=== PATIENT | female | born 1970 | race Caucasian/White ===

== ENCOUNTER → 2020-11-30 12:31 | Outpatient (CLI) | payer OTHER, SELFPAY ==
--- NOTE | 2020-11-30 | DI.MG.S_ITS ---
BILATERAL DIGITAL SCREENING MAMMOGRAM 3D/2D WITH CAD: 11/30/2020 CLINICAL: Routine screening. Family history of breast cancer. Comparison is made to exams dated: 03/22/2019 mammogram and 02/05/2018 mammogram - [facility]. The tissue of both breasts is heterogeneously dense. This may lower the sensitivity of mammography. Current study was also evaluated with a Computer Aided Detection (CAD) system. There is a biopsy clip in the right breast. No significant masses, calcifications, or other findings are seen in either breast. There has been no significant interval change. IMPRESSION: NEGATIVE There is no mammographic evidence of malignancy. A 1 year screening mammogram is recommended. This exam was interpreted at Station ID: [id number]. NOTE: For mammograms, a report in lay terms will be sent to the patient. Approximately 15% of breast malignancies will not be visualized mammographically. In the management of a palpable breast mass, a negative mammogram must not discourage biopsy of a clinically suspicious lesion. Electronically Signed By: Ranulfo bolanos/danyelle:11/30/2020 13:03:06 letter sent: Normal Exam ACR BI-RADS Category 1: Negative 3341F
== END ==
PROVIDERS: Family Provider Family Medicine; PCP Family Medicine; Referring Provider Family Medicine; Visit Provider Family Medicine
DX: Z12.31 Encounter for screening mammogram for malignant neoplasm of breast (principal); Z80.3 Family history of malignant neoplasm of breast
CPT/HCPCS: 77063; 77067

== ENCOUNTER → 2022-04-10 17:42 | Outpatient (CLI) | payer OTHER, SELFPAY ==
--- NOTE | 2022-04-10 17:43 | DI.MG.S_ITS ---
BILATERAL DIGITAL SCREENING MAMMOGRAM 3D/2D WITH CAD: 04/10/2022 CLINICAL: Routine screening. Family history of breast cancer. Comparison is made to exams dated: 11/30/2020 mammogram - [facility], 03/22/2019 mammogram, and 02/05/2018 mammogram - [facility]. The tissue of both breasts is heterogeneously dense. This may lower the sensitivity of mammography. Current study was also evaluated with a Computer Aided Detection (CAD) system. There is a biopsy clip in the right breast. No significant masses, calcifications, or other findings are seen in either breast. There has been no significant interval change. IMPRESSION: NEGATIVE There is no mammographic evidence of malignancy. A 1 year screening mammogram is recommended. Based on Tyrer-Cuzick model (a risk assessment model), the patient's lifetime risk is 22.0% and her 10 year risk is 5.4%. If a patient has an elevated risk, a more comprehensive evaluation should be considered and/or a referral to a genetic counselor. The [employer], [employer], and NCCN Guidelines advise the consideration of Breast MRI as an adjunct to screening mammography in patients whose Lifetime risk to develop breast cancer is 20% or higher. This exam was interpreted at Station ID: [id number]. NOTE: For mammograms, a report in lay terms will be sent to the patient. Approximately 15% of breast malignancies will not be visualized mammographically. In the management of a palpable breast mass, a negative mammogram must not discourage biopsy of a clinically suspicious lesion. Electronically Signed By: Arvin jefferson/danyelle:04/11/2022 08:09:44 letter sent: Normal Exam ACR BI-RADS Category 1: Negative 3341F
== END ==
PROVIDERS: Family Provider Family Medicine; PCP Family Medicine; Referring Provider Family Medicine; Visit Provider Family Medicine
DX: Z12.31 Encounter for screening mammogram for malignant neoplasm of breast (principal); Z80.3 Family history of malignant neoplasm of breast
CPT/HCPCS: 77063; 77067

== ENCOUNTER → 2023-11-09 14:48 | Outpatient (CLI) | payer OTHER, SELFPAY ==
--- NOTE | 2023-11-09 | DI.MG.S_ITS ---
BILATERAL DIGITAL SCREENING MAMMOGRAM 3D/2D WITH CAD: 11/09/2023 CLINICAL: Routine screening. Family history of breast cancer. Comparison is made to exams dated: 04/10/2022 mammogram, 11/30/2020 mammogram - [facility], and 03/22/2019 mammogram - [facility]. There are scattered areas of fibroglandular density in both breasts (category b / 25%-50% glandular tissue). Current study was also evaluated with a Computer Aided Detection (CAD) system. There is a biopsy clip in the right breast. No significant masses, calcifications, or other findings are seen in either breast. There has been no significant interval change. IMPRESSION: NEGATIVE There is no mammographic evidence of malignancy. A 1 year screening mammogram is recommended. Based on the Tyrer Cuzick model (a risk assessment model) the patient's lifetime risk is 14.8% and her 10 year risk is 3.9%. According to the ACR, ACS, and NCCN guidelines, an annual breast MRI exam along with mammogram is recommended if the patient's lifetime risk is 20% or greater. This exam was interpreted at Station ID: [id number]. NOTE: For mammograms, a report in lay terms will be sent to the patient. Approximately 15% of breast malignancies will not be visualized mammographically. In the management of a palpable breast mass, a negative mammogram must not discourage biopsy of a clinically suspicious lesion. Electronically Signed By: Hanny mayo/danyelle:11/09/2023 16:12:03 letter sent: Normal Exam ACR BI-RADS Category 1: Negative [id number]
== END ==
LOC: MAMMO 14:49
PROVIDERS: Family Provider Family Medicine; PCP Family Medicine; Referring Provider Family Medicine; Visit Provider Family Medicine
DX: Z12.31 Encounter for screening mammogram for malignant neoplasm of breast (principal); Z80.3 Family history of malignant neoplasm of breast; R92.323 Mammographic fibroglandular density, bilateral breasts
CPT/HCPCS: 77063; 77067

== ENCOUNTER 2024-01-22 13:45 | Outpatient (RCR) | payer OTHER, SELFPAY ==
--- NOTE | 2023-11-05 17:16 | PT.OIE ---
Current Diagnoses Other chronic pain (11/05/23) Pain in right knee (11/05/23) Past Medical History (Last Reviewed 02/20/22 @ 09:07 by Sawyer Griffiths MD) Fatigue due to sleep pattern disturbance (~2019) Insomnia due to medical condition (~2019) Obstructive sleep apnea, adult Snoring (~2019) Visit Care Team Role Provider Type Elina Colon MD Attending Provider Physician Family Provider Primary Care Provider Referring Provider Specialty: Family Practice Address: [address] [place] [address], [facility] [place], [facility] Email: [email or web address] Physical Therapy Initial Evaluation PT-OP-A Visit Information Start: 11/04/23 17:57 Freq: Status: Active Protocol: Document 11/05/23 09:02 NM (Rec: 11/05/23 09:48 NM [id number]) Out-Patient Physical Therapy Visit Information Visit Information Visit Type Initial Evaluation Visit Start Time 09:00 Visit Stop Time 09:45 Visit Number 1 Evaluation Information Evaluation Date 11/05/23 Precautions Precautions No twisting, limit squat depth PT-OP-B Current Condition Start: 11/04/23 17:57 Freq: Status: Active Protocol: Document 11/05/23 09:02 NM (Rec: 11/05/23 09:48 NM [id number]) Current Condition History of Current Condition Onset Date April 2023 Current Complaints pain, catching/locking, warm History of Current Condition Pt presents with R knee pain, beginning at least 6 months ago. She reports that her knee feels like it wants to pop. She thinks that it occurred when her large dog ran into her leg from outside. Reports no falls, twists, or other injuries. No previous injuries or surgeries. Her R knee pain wakes her up with positional changes; pain also with squatting, walking or standing during her classes (1.5 hrs), descending stairs, pivoting/ turning. She reports that it doesn't prevent her from ADLs, but is aggravating. She has been squatting ea day, which can cause pain. She walks a few times/wk occasionally, but otherwise not active. Pt states that her R knee feels like it could give out and is loose but hasn't had any instances of her knee buckling . Pt's knee aches with sitting ; she also reports that occasionally she gets locking, clicking, or feels stuck. Prior Treatments and Tests No imaging performed (ordered PT first), no previous treatments Current Functional Impairments (Reported) Functional Limitations- ADL's pain with sleeping position Functional Limitations- Mobility/Gait 1.5 hrs stand/walk; difficulty with declines/stairs due to pain Functional Limitations- Work/School 1.5 hr stand/walk before requires seated rest break due to pain PT-OP-C Subjective Start: 11/04/23 17:57 Freq: Status: Active Protocol: Document 11/05/23 09:02 NM (Rec: 11/05/23 09:48 NM [id number]) OP-PT Subjective Patient Comments Patient Comments see hx above for pt Patient Questionnaires Lower Extremity Functional Scale LEFS Score 74/80 OP-PT Pain Assessment Pain Assessment Grid Paper Pain Assessment Grid Completed Yes Location R knee Pain Location Details post knee, medial joint line, near patella Intensity 2 Scale Used Numeric (0 - 10) Description Aching,Pressure,Sharp Description- Other worst: 7; pop or come apart, twist Frequency Daily Variations/Patterns feels warm Pain Aggravating Factors Position,Changing Position, Activity,Exercise,Standing, Walking Pain Alleviating Factors Medication,Sitting,Rest Other Pain Alleviating Factors ibuprofen Home Pain Medication Use Pain Medications Used Yes: ibuprofen PT-OP-D Balance Start: 11/04/23 17:57 Freq: Status: Active Protocol: Document 11/05/23 09:02 NM (Rec: 11/05/23 09:48 NM [id number]) Balance Tests Romberg Romberg 30 seconds Single Limb Standing Single Limb- Right 15 seconds, increased sway/ instability Single Limb- Left 15 seconds Tandem Tandem Standing 10 seconds PT-OP-E Functional Tests Start: 11/04/23 17:57 Freq: Status: Active Protocol: Document 11/05/23 09:02 NM (Rec: 11/05/23 09:48 NM [id number]) Functional Tests Squat Test Score 10 Comments knee valgus, decreased depth; rotates L, painful PT-OP-F Manual Assessment Start: 11/04/23 17:57 Freq: Status: Active Protocol: Document 11/05/23 09:02 NM (Rec: 11/05/23 09:48 NM [id number]) Manual Assessments Soft Tissue Assessment Soft Tissue Mobility Assessment Tenderness and tightness in popliteal fossa. Slight hamstring tightness, but not formally measured Joint Mobility Assessment Joint Mobility Assessment No clicking or locking with instability tests. Pain with MCL test, but no increased mobility. R knee joint compression is painful, worse with rotation. Decreased patellar mobility globally. Pain with overpressure R knee extension PT-OP-G Mobility & Gait Start: 11/04/23 17:57 Freq: Status: Active Protocol: Document 11/05/23 09:02 NM (Rec: 11/05/23 09:48 NM [id number]) OP Gait Assessment Gait Gait Assistance Required: Independent Distance (Feet) 200 Assistive Devices Assistive Device None Gait Deviations General Gait Pattern Antalgic Factors Limiting Gait Function Factors Limiting Gait Function Decreased Activity Tolerance Comments Gait Comments No TKE R knee in stance, decreased stance time. PT-OP-H Neuro Start: 11/04/23 17:57 Freq: Status: Active Protocol: Document 11/05/23 09:02 NM (Rec: 11/05/23 09:48 NM [id number]) Sensation Evaluation Comments Summary Comments BLE intact to light touch sensation equally PT-OP-J Posture/Palpation/Skin Start: 11/04/23 17:57 Freq: Status: Active Protocol: Document 11/05/23 09:02 NM (Rec: 11/05/23 09:48 NM [id number]) Posture Evaluation Position Standing Head/C-Spine Posture Forward Head T-Spine Posture Increased Kyphosis Weight Distribution Decreased Wt.Bear on (R) Hip Posture (L) Externally Rotated,(R) Externally Rotated Knee Posture (L) Genu Valgus,(R) Genu Valgus Patellar Posture (L) Superior,(R) Superior Ankle/Foot Posture (L) Pronated,(R) Pronated Foot Arch (L) Medium Arch,(R) Medium Arch Comments Posture Comments Tendency for hyperextension L knee Palpation Assessment Location R knee Palpation Location medial joint line, anterior knee, patella, MCL, pes anserine Palpation Findings Soft Tissue Tightness, Tenderness Palpation Details Tenderness along medial joint line, MCL distally. No increased MCL thickness. No tenderness laterally on knee or at patellar tendon. No tenderness at pes anserine insertion PT-OP-K Range of Motion Start: 11/04/23 17:57 Freq: Status: Active Protocol: Document 11/05/23 09:02 NM (Rec: 11/05/23 09:48 NM [id number]) Hip Goniometric Range of Motion Hip Right Flexion w/Knee Flexed 105 Extension 10 Abduction 10 Left Flexion w/Knee Flexed 105 Extension 10 Abduction 10 Knee Goniometric Range of Motion Knee Left Flexion Active (degrees) 130 Flexion Passive (degrees) 130 Extension Active (degrees) 0 Hyper-Extension Active 2 Right Flexion Active (degrees) 125 Flexion Passive (degrees) 130 Extension Active (degrees) 2 Extension Passive (degrees) 0 Comments Pain with overpressure hyperextension Knee ROM Limitations Knee ROM Limitations Pain PT-OP-L Special Tests Start: 11/04/23 17:57 Freq: Status: Active Protocol: Document 11/05/23 09:02 NM (Rec: 11/05/23 09:48 NM [id number]) Special Tests Knee Special Tests Valgus Test Results - Comments 0, 30 deg. Painful but no increased mobility compared to LLE Varus Test Results - Comments 0, 30 deg Patellar Grind Test Test Results + Posterior Sag Test Results - Posterior Draw Test Results - Anterior Draw Test Results - Parul Test Test Results + Comments Painful on medial joint line, no clicking/popping/locking Elsa's Test Results - Thessaly Test Results + Comments 5 deg and 20 deg; reproduces familiar pain Apley's Compression Test Results + Comments Catching; reproduces familiar pain PT-OP-M Strength Start: 11/04/23 17:57 Freq: Status: Active Protocol: Document 11/05/23 09:02 NM (Rec: 11/05/23 09:48 NM [id number]) Hip Strength Hip Manual Muscle Testing Right Flexion (L2) 4 Good Extension (S1) 4- Good- Abduction 4- Good- Adduction 4 Good External Rotation 4 Good Internal Rotation 4 Good Left Flexion (L2) 4 Good Extension (S1) 4 Good Abduction 4 Good Adduction 4 Good External Rotation 4 Good Internal Rotation 4 Good Knee Strength Knee Manual Muscle Testing Left Flexion (S2) 4 Good Extension (L3) 4 Good Right Flexion (S2) 4- Good- Extension (L3) 4- Good- Comments No pain with resisted motions Ankle/Foot Strength Ankle and Foot Manual Muscle Testing Right Dorsiflexion (L4) 4 Good Plantarflexion (S1) 4 Good Left Dorsiflexion (L4) 4 Good Plantarflexion (S1) 4 Good PT-OP-T Assessment and Plan Start: 11/04/23 17:57 Freq: Status: Active Protocol: Document 11/05/23 09:02 NM (Rec: 11/05/23 09:48 NM [id number]) Physical Therapy Assessment Rehab Potential Rehabilitation Potential Good Evaluation Complexity Number of Personal Factors/Comorbidities 1-2 Number of Body Systems Impaired 1-2 Clinical Presentation at Evaluation Stable Impairments Impairments Activity Tolerance,Balance, Functional Activities, Functional Mobility,Gait, Integument,Pain,Posture,ROM, Soft Tissue Mobility,Strength, Transfers Goals Five Impairment HEP Impairment no daily HEP/exercise program Short Term Goal (STG) Pt will report compliance with HEP 2-3x/wk in order to maximize gains made during PT sessions and demonstrate improved activity tolerance. STG Duration 3 weeks Correction Goal (LTG) Pt will report compliance with HEP 2-3x/wk and/or establish walking program 2-3x/wk for maintenance after PT and demonstrate improved activity tolerance. LTG Duration 6 weeks Four Impairment sleep Impairment pain with position during sleep Home Health Lvn Goal (LTG) Pt will report no R knee pain when changing sleep positions in order to demonstrate improved pain management and sleeping posture LTG Duration 6 weeks Three Impairment function Impairment pain with stairs Short Term Goal (STG) Pt will be able to perform at least 10 eccentric step downs with R knee pain <4/10 and without compensation in order to demonstrate improved knee stability and control during stairs STG Duration 3 weeks Home Health Lvn Goal (LTG) Pt will be able to perform at least 12 stairs with or without a hand rail with R knee pain <4/10 and without compensation in order to demonstrate improved knee stability and control during stairs. LTG Duration 6 weeks Two Impairment function Impairment 10 bilateral squats with pain, compensation Short Term Goal (STG) Pt will be able to perform at least 10 bilateral squats above 90 deg without compensation and pain <4/10 in order demonstrate improved hip and knee strength for ADLs , stairs STG Duration 3 weeks Home Health Lvn Goal (LTG) Pt will be able to perform at least 15 bilateral squats above 90 deg without compensation and pain <4/10 in order demonstrate improved hip and knee strength for ADLs , stairs LTG Duration 6 weeks One Impairment strength Impairment R knee flex/ext strength 4-/5 MMT Short Term Goal (STG) Pt will improve R knee flex/ ext MMT to at least 4/5 in order to demonstrate increased knee strength for ADLs, gait STG Duration 3 weeks Home Health Lvn Goal (LTG) Pt will improve R knee flex/ ext MMT to at least 4+/5 in order to demonstrate increased knee strength for ADLs, gait LTG Duration 6 weeks Assessment Summary Assessment Pt is a 53 y.o. female presenting with R knee pain for 6 months, likely related to her dog running into her R leg. Symptoms are most consistent with meniscus injury. Pt reports feelings of locking, stiffness, pain with standing or walking or twisting, and pressure. She has not had any instances of R knee buckling. Pt has slightly less R knee AROM compared to L knee AROM, but is more limited in extension. Pt hyperextends L knee in both stance and during exam. Pt's R knee strength is more limited than L knee strength, but no pain with resisted MMT; bilateral hip and ankle strength are comparable, although pt does have weakness of hip extensors and abductors. Squatting is painful; compensates with knee valgus. Decreased balance testing with narrow EUGENIO and single leg stance, but not painful. Pt would benefit Familiar pain reproduced with thessaly, parul, and apley compression tests; no increased mobility of R knee compared to L knee for ACL, PCL, or collateral ligament tests but valgus test is minimally painful. Pain is also reproduced with medial joint line and MCL palpation. PT educated pt on exam findings, POC, activity modification, and briefly over sleep position. Pt verbalizes agreement. Depending on pt progression and pain management over course of treatment, pt will be referred back to PCP for further imaging and referral to ortho. Pt would benefit from skilled PT for progressive hip/knee strengthening to offload R knee, activity modification, and biomechanical training in order to improve activity tolerance, stability, and symptom management. Physical Therapy Plan Frequency and Duration Frequency of Treatment 2x/Week Duration of treatment (weeks) 6 Plan of Care Start Date 11/05/23 Plan of Care End Date 12/25/23 Therapeutic Interventions Therapeutic Interventions Aquatic Therapy,Balance Training,Coordination Training ,Gait Training,Home Exercise Program,Joint Mobilizations, Manual Therapy,Neuromuscular Re-education,Orthotic/ Prosthetic Management,Patient/ Caregiver Education,Self-Care/ Home Management,Sensory Integration,Soft Tissue Mobilization,Taping, Therapeutic Activities, Therapeutic Exercises Modalities Biofeedback,Cold Pack/Ice Massage,Electric Stimulation, Hot Packs,Ultrasound, Vasopneumatic Devices Next Visit Focus/Plan Next Note Type Treatment Note Next Visit Plan Education on sleeping position , activity modification Initiate hip strengthening: hip abd, hip ext, bridge with heels elevated, LAQ, TKE
--- NOTE | 2023-11-12 09:22 | PT.OTN ---
Current Diagnoses Other chronic pain (11/12/23) Pain in right knee (11/12/23) Other lack of coordination (11/12/23) Weakness (11/12/23) Physical Therapy Treatment Note PT-OP-A Visit Information Start: 11/04/23 17:57 Freq: Status: Active Protocol: Document 11/12/23 08:13 NM (Rec: 11/12/23 09:21 NM [id number]) Out-Patient Physical Therapy Visit Information Visit Information Visit Type Treatment Note Visit Note 6 visits approved Visit Start Time 08:16 Visit Stop Time 09:00 Visit Number 2/6 approved Evaluation Information Evaluation Date 11/05/23 Precautions Precautions No twisting, limit squat depth PT-OP-B Current Condition Start: 11/04/23 17:57 Freq: Status: Active Protocol: Document 11/05/23 09:02 NM (Rec: 11/05/23 09:48 NM [id number]) Current Condition History of Current Condition Onset Date April 2023 Current Complaints pain, catching/locking, warm History of Current Condition Pt presents with R knee pain, beginning at least 6 months ago. She reports that her knee feels like it wants to pop. She thinks that it occurred when her large dog ran into her leg from outside. Reports no falls, twists, or other injuries. No previous injuries or surgeries. Her R knee pain wakes her up with positional changes; pain also with squatting, walking or standing during her classes (1.5 hrs), descending stairs, pivoting/ turning. She reports that it doesn't prevent her from ADLs, but is aggravating. She has been squatting ea day, which can cause pain. She walks a few times/wk occasionally, but otherwise not active. Pt states that her R knee feels like it could give out and is loose but hasn't had any instances of her knee buckling . Pt's knee aches with sitting ; she also reports that occasionally she gets locking, clicking, or feels stuck. Prior Treatments and Tests No imaging performed (ordered PT first), no previous treatments Current Functional Impairments (Reported) Functional Limitations- ADL's pain with sleeping position Functional Limitations- Mobility/Gait 1.5 hrs stand/walk; difficulty with declines/stairs due to pain Functional Limitations- Work/School 1.5 hr stand/walk before requires seated rest break due to pain PT-OP-C Subjective Start: 11/04/23 17:57 Freq: Status: Active Protocol: Document 11/12/23 08:13 NM (Rec: 11/12/23 09:21 NM [id number]) OP-PT Subjective Patient Comments Patient Comments Pt reports that her knee was irritated after IE. She reports that she doesn't have any pain right now because she hasn't done anything. States that going up stairs is more irritated than going down stairs PT-OP-D Balance Start: 11/04/23 17:57 Freq: Status: Active Protocol: Document 11/05/23 09:02 NM (Rec: 11/05/23 09:48 NM [id number]) Balance Tests Romberg Romberg 30 seconds Single Limb Standing Single Limb- Right 15 seconds, increased sway/ instability Single Limb- Left 15 seconds Tandem Tandem Standing 10 seconds PT-OP-E Functional Tests Start: 11/04/23 17:57 Freq: Status: Active Protocol: Document 11/05/23 09:02 NM (Rec: 11/05/23 09:48 NM [id number]) Functional Tests Squat Test Score 10 Comments knee valgus, decreased depth; rotates L, painful PT-OP-F Manual Assessment Start: 11/04/23 17:57 Freq: Status: Active Protocol: Document 11/05/23 09:02 NM (Rec: 11/05/23 09:48 NM [id number]) Manual Assessments Soft Tissue Assessment Soft Tissue Mobility Assessment Tenderness and tightness in popliteal fossa. Slight hamstring tightness, but not formally measured Joint Mobility Assessment Joint Mobility Assessment No clicking or locking with instability tests. Pain with MCL test, but no increased mobility. R knee joint compression is painful, worse with rotation. Decreased patellar mobility globally. Pain with overpressure R knee extension PT-OP-G Mobility & Gait Start: 11/04/23 17:57 Freq: Status: Active Protocol: Document 11/05/23 09:02 NM (Rec: 11/05/23 09:48 NM [id number]) OP Gait Assessment Gait Gait Assistance Required: Independent Distance (Feet) 200 Assistive Devices Assistive Device None Gait Deviations General Gait Pattern Antalgic Factors Limiting Gait Function Factors Limiting Gait Function Decreased Activity Tolerance Comments Gait Comments No TKE R knee in stance, decreased stance time. PT-OP-H Neuro Start: 11/04/23 17:57 Freq: Status: Active Protocol: Document 11/05/23 09:02 NM (Rec: 11/05/23 09:48 NM [id number]) Sensation Evaluation Comments Summary Comments BLE intact to light touch sensation equally PT-OP-J Posture/Palpation/Skin Start: 11/04/23 17:57 Freq: Status: Active Protocol: Document 11/05/23 09:02 NM (Rec: 11/05/23 09:48 NM [id number]) Posture Evaluation Position Standing Head/C-Spine Posture Forward Head T-Spine Posture Increased Kyphosis Weight Distribution Decreased Wt.Bear on (R) Hip Posture (L) Externally Rotated,(R) Externally Rotated Knee Posture (L) Genu Valgus,(R) Genu Valgus Patellar Posture (L) Superior,(R) Superior Ankle/Foot Posture (L) Pronated,(R) Pronated Foot Arch (L) Medium Arch,(R) Medium Arch Comments Posture Comments Tendency for hyperextension L knee Palpation Assessment Location R knee Palpation Location medial joint line, anterior knee, patella, MCL, pes anserine Palpation Findings Soft Tissue Tightness, Tenderness Palpation Details Tenderness along medial joint line, MCL distally. No increased MCL thickness. No tenderness laterally on knee or at patellar tendon. No tenderness at pes anserine insertion PT-OP-K Range of Motion Start: 11/04/23 17:57 Freq: Status: Active Protocol: Document 11/05/23 09:02 NM (Rec: 11/05/23 09:48 NM [id number]) Hip Goniometric Range of Motion Hip Right Flexion w/Knee Flexed 105 Extension 10 Abduction 10 Left Flexion w/Knee Flexed 105 Extension 10 Abduction 10 Knee Goniometric Range of Motion Knee Left Flexion Active (degrees) 130 Flexion Passive (degrees) 130 Extension Active (degrees) 0 Hyper-Extension Active 2 Right Flexion Active (degrees) 125 Flexion Passive (degrees) 130 Extension Active (degrees) 2 Extension Passive (degrees) 0 Comments Pain with overpressure hyperextension Knee ROM Limitations Knee ROM Limitations Pain PT-OP-L Special Tests Start: 11/04/23 17:57 Freq: Status: Active Protocol: Document 11/05/23 09:02 NM (Rec: 11/05/23 09:48 NM [id number]) Special Tests Knee Special Tests Valgus Test Results - Comments 0, 30 deg. Painful but no increased mobility compared to LLE Varus Test Results - Comments 0, 30 deg Patellar Grind Test Test Results + Posterior Sag Test Results - Posterior Draw Test Results - Anterior Draw Test Results - Parul Test Test Results + Comments Painful on medial joint line, no clicking/popping/locking Elsa's Test Results - Thessaly Test Results + Comments 5 deg and 20 deg; reproduces familiar pain Apley's Compression Test Results + Comments Catching; reproduces familiar pain PT-OP-M Strength Start: 11/04/23 17:57 Freq: Status: Active Protocol: Document 11/05/23 09:02 NM (Rec: 11/05/23 09:48 NM [id number]) Hip Strength Hip Manual Muscle Testing Right Flexion (L2) 4 Good Extension (S1) 4- Good- Abduction 4- Good- Adduction 4 Good External Rotation 4 Good Internal Rotation 4 Good Left Flexion (L2) 4 Good Extension (S1) 4 Good Abduction 4 Good Adduction 4 Good External Rotation 4 Good Internal Rotation 4 Good Knee Strength Knee Manual Muscle Testing Left Flexion (S2) 4 Good Extension (L3) 4 Good Right Flexion (S2) 4- Good- Extension (L3) 4- Good- Comments No pain with resisted motions Ankle/Foot Strength Ankle and Foot Manual Muscle Testing Right Dorsiflexion (L4) 4 Good Plantarflexion (S1) 4 Good Left Dorsiflexion (L4) 4 Good Plantarflexion (S1) 4 Good PT-OP-Q Treatments Start: 11/04/23 17:57 Freq: Status: Active Protocol: Document 11/12/23 08:13 NM (Rec: 11/12/23 09:21 NM [id number]) Cardio Equipment Bicycle (Upright) Duration (Minutes) 4 Resistance 4 Seat Position 4 Other warm up; no knee pain Therapeutic Exercises Supine Exercises SAQ Supine Exercise Name progressed to LAQ Side right Resistance AROM with hold Equipment Used bolster Reps/Minutes 1x10 Comments cued TKE; reports no pain; easy so progressed straight leg raise Supine Exercise Name with quad set Side right Resistance AROM with brief hold Reps/Minutes 2x10 Comments cued TKE entire ROM, no ext lag; fatiguing bridge Supine Exercise Name toes elevated Side bilateral Resistance lvl 3 tb around thighs Reps/Minutes 2x10 Comments feels in shins, but reports no pain in knees Sidelying Exercises hip abduction Sidelying Exercise Name with hip IR Side bilateral Resistance AROM 1st set > lvl 2 tb sets 2-3 Reps/Minutes 3x10 Comments cued for hip ext/abd, form and eccentric lowering Sitting Exercises LAQ Side right Resistance 2# ankle weight Equipment Used AROM > 2# Reps/Minutes 2x10 Comments reports 2/10 pain at medial knee near patella after 15 reps Standing Exercises wall squat Side bilateral Resistance lvl 3 band around thighs Equipment Used large green estonian ball, wall Reps/Minutes 1x10 with 5 hold, pain free depth ~60 deg flex Comments cued for post weight shift for greater glute activation TKE Side right Resistance isometric Equipment Used towel roll behind back Reps/Minutes 2x10 with 5 hold Comments cued soft knee to hyperextension Other Exercises self soft tissue mobilization Other Exercise Name distal hamstrings Side right Equipment Used rolling pin Reps/Minutes 60 Comments to decrease pulling, reports relief after Manual Therapy Treatment Soft Tissue Mobilization R thigh Body Location quad, adductors, TFL, hamstring, glutes Mobilization Type Instrument Assisted,Myofascial Release,Rolling Intensity/Depth Moderate Body Position sidelying/supine Comments Tenderness at distal quads and hamstrings with rolling. Most restricted at distal hamstrings. Reports soft tissue relaxation post mobilization. Educated on soft tissue mobilization using rolling pin/stick or foam roller as part of HEP. Joint Mobilizations R knee Joint patellar Direction lateral>medial, medial tilts, superior/inferior Grade II Body Position Supine Reps/Duration 1x10 ea Comments Crepitus and slight catch with medial glide. Patellar restrictions moving medially, inferiorly. No pain reported with glides Self-Care/Home Management Treatment Education Patient Education Home Exercise Program,Pain Management,Posture Other Education 5 minutes: Educated on modalities, soft tissue mobilization for pain relief. Educated on sleeping posture, using pillow between legs during sleep especially during turning. HEP: straight leg raise, sidelying hip abduction , LAQ, bridge with hip abduction PT-OP-T Assessment and Plan Start: 11/04/23 17:57 Freq: Status: Active Protocol: Document 11/12/23 08:13 NM (Rec: 11/12/23 09:21 NM [id number]) Physical Therapy Assessment Goals Five Impairment HEP Impairment no daily HEP/exercise program Short Term Goal (STG) Pt will report compliance with HEP 2-3x/wk in order to maximize gains made during PT sessions and demonstrate improved activity tolerance. STG Duration 3 weeks Mcc Goal (LTG) Pt will report compliance with HEP 2-3x/wk and/or establish walking program 2-3x/wk for maintenance after PT and demonstrate improved activity tolerance. LTG Duration 6 weeks Four Impairment sleep Impairment pain with position during sleep Head Of Music Goal (LTG) Pt will report no R knee pain when changing sleep positions in order to demonstrate improved pain management and sleeping posture LTG Duration 6 weeks Three Impairment function Impairment pain with stairs Short Term Goal (STG) Pt will be able to perform at least 10 eccentric step downs with R knee pain <4/10 and without compensation in order to demonstrate improved knee stability and control during stairs STG Duration 3 weeks Mcc Goal (LTG) Pt will be able to perform at least 12 stairs with or without a hand rail with R knee pain <4/10 and without compensation in order to demonstrate improved knee stability and control during stairs. LTG Duration 6 weeks Two Impairment function Impairment 10 bilateral squats with pain, compensation Short Term Goal (STG) Pt will be able to perform at least 10 bilateral squats above 90 deg without compensation and pain <4/10 in order demonstrate improved hip and knee strength for ADLs , stairs STG Duration 3 weeks Head Of Music Goal (LTG) Pt will be able to perform at least 15 bilateral squats above 90 deg without compensation and pain <4/10 in order demonstrate improved hip and knee strength for ADLs , stairs LTG Duration 6 weeks One Impairment strength Impairment R knee flex/ext strength 4-/5 MMT Short Term Goal (STG) Pt will improve R knee flex/ ext MMT to at least 4/5 in order to demonstrate increased knee strength for ADLs, gait STG Duration 3 weeks Head Of Music Goal (LTG) Pt will improve R knee flex/ ext MMT to at least 4+/5 in order to demonstrate increased knee strength for ADLs, gait LTG Duration 6 weeks Assessment Summary Assessment Pt tolerated session well. Initiated hip abduction/glute strengthening in order to offload R knee and decrease pain with activity. Pt challenged with repetitions of hip abduction, straight leg raise due to fatigue; however, able to perform without compensation with cueing. Progressed from AROM to bands. During squats, PT cued pt for greater hip hinge and posterior weight shift for greater glute activation to decrease strain on knees with squat. Pt reports no pain during squats with limited squat depth and increased glute utilization. Manual treatment for pain reduction related to soft tissue restrictions, particularly R quad and hamstring. Initiated grade II patellar mobilizations to improve mobility throughout knee flexion/extension AROM. PT educated pt on sleep position with pillow between legs, frequent movement during workday to limit hamstring tightness, and modalities/soft tissue mobilization for pain relief. Pt would benefit from skilled PT for R hip/knee strengthening, biomechanics training, and education regarding activity modification in order to reduce pain symptoms and improve activity tolerance. Physical Therapy Plan Frequency and Duration Frequency of Treatment 2x/Week Duration of treatment (weeks) 6 Plan of Care Start Date 11/05/23 Plan of Care End Date 12/25/23 Therapeutic Interventions Therapeutic Interventions Aquatic Therapy,Balance Training,Coordination Training ,Gait Training,Home Exercise Program,Joint Mobilizations, Manual Therapy,Neuromuscular Re-education,Orthotic/ Prosthetic Management,Patient/ Caregiver Education,Self-Care/ Home Management,Sensory Integration,Soft Tissue Mobilization,Taping, Therapeutic Activities, Therapeutic Exercises Modalities Biofeedback,Cold Pack/Ice Massage,Electric Stimulation, Hot Packs,Ultrasound, Vasopneumatic Devices Next Visit Focus/Plan Next Note Type Treatment Note Next Visit Plan Progress hip abd (add side steps), hip ext, bridge with heels elevated, LAQ, TKE Trial 4-6 step ups, step downs, squat with limited depth and hip abduction/glute, trial leg press if time
--- NOTE | 2023-11-16 12:24 | PT.OTN ---
Current Diagnoses Other chronic pain (11/16/23) Pain in right knee (11/16/23) Other lack of coordination (11/16/23) Weakness (11/16/23) Physical Therapy Treatment Note PT-OP-A Visit Information Start: 11/04/23 17:57 Freq: Status: Active Protocol: Document 11/16/23 09:44 NM (Rec: 11/16/23 11:21 NM [id number]) Out-Patient Physical Therapy Visit Information Visit Information Visit Type Treatment Note Visit Note 6 visits approved Visit Start Time 09:45 Visit Stop Time 10:30 Visit Number 3/6 approved Evaluation Information Evaluation Date 11/05/23 PT-OP-B Current Condition Start: 11/04/23 17:57 Freq: Status: Active Protocol: Document 11/05/23 09:02 NM (Rec: 11/05/23 09:48 NM [id number]) Current Condition History of Current Condition Onset Date April 2023 Current Complaints pain, catching/locking, warm History of Current Condition Pt presents with R knee pain, beginning at least 6 months ago. She reports that her knee feels like it wants to pop. She thinks that it occurred when her large dog ran into her leg from outside. Reports no falls, twists, or other injuries. No previous injuries or surgeries. Her R knee pain wakes her up with positional changes; pain also with squatting, walking or standing during her classes (1.5 hrs), descending stairs, pivoting/ turning. She reports that it doesn't prevent her from ADLs, but is aggravating. She has been squatting ea day, which can cause pain. She walks a few times/wk occasionally, but otherwise not active. Pt states that her R knee feels like it could give out and is loose but hasn't had any instances of her knee buckling . Pt's knee aches with sitting ; she also reports that occasionally she gets locking, clicking, or feels stuck. Prior Treatments and Tests No imaging performed (ordered PT first), no previous treatments Current Functional Impairments (Reported) Functional Limitations- ADL's pain with sleeping position Functional Limitations- Mobility/Gait 1.5 hrs stand/walk; difficulty with declines/stairs due to pain Functional Limitations- Work/School 1.5 hr stand/walk before requires seated rest break due to pain PT-OP-C Subjective Start: 11/04/23 17:57 Freq: Status: Active Protocol: Document 11/16/23 09:44 NM (Rec: 11/16/23 11:21 NM [id number]) OP-PT Subjective Patient Comments Patient Comments Pt reports that she had a little posterior knee soreness after last session, reports minimal pain today but states it's still behind the knee. She did not do HEP on Thursday, but has been compliant all the other days. No difficulty with HEP PT-OP-D Balance Start: 11/04/23 17:57 Freq: Status: Active Protocol: Document 11/05/23 09:02 NM (Rec: 11/05/23 09:48 NM [id number]) Balance Tests Romberg Romberg 30 seconds Single Limb Standing Single Limb- Right 15 seconds, increased sway/ instability Single Limb- Left 15 seconds Tandem Tandem Standing 10 seconds PT-OP-E Functional Tests Start: 11/04/23 17:57 Freq: Status: Active Protocol: Document 11/05/23 09:02 NM (Rec: 11/05/23 09:48 NM [id number]) Functional Tests Squat Test Score 10 Comments knee valgus, decreased depth; rotates L, painful PT-OP-F Manual Assessment Start: 11/04/23 17:57 Freq: Status: Active Protocol: Document 11/05/23 09:02 NM (Rec: 11/05/23 09:48 NM [id number]) Manual Assessments Soft Tissue Assessment Soft Tissue Mobility Assessment Tenderness and tightness in popliteal fossa. Slight hamstring tightness, but not formally measured Joint Mobility Assessment Joint Mobility Assessment No clicking or locking with instability tests. Pain with MCL test, but no increased mobility. R knee joint compression is painful, worse with rotation. Decreased patellar mobility globally. Pain with overpressure R knee extension PT-OP-G Mobility & Gait Start: 11/04/23 17:57 Freq: Status: Active Protocol: Document 11/05/23 09:02 NM (Rec: 11/05/23 09:48 NM [id number]) OP Gait Assessment Gait Gait Assistance Required: Independent Distance (Feet) 200 Assistive Devices Assistive Device None Gait Deviations General Gait Pattern Antalgic Factors Limiting Gait Function Factors Limiting Gait Function Decreased Activity Tolerance Comments Gait Comments No TKE R knee in stance, decreased stance time. PT-OP-H Neuro Start: 11/04/23 17:57 Freq: Status: Active Protocol: Document 11/05/23 09:02 NM (Rec: 11/05/23 09:48 NM [id number]) Sensation Evaluation Comments Summary Comments BLE intact to light touch sensation equally PT-OP-J Posture/Palpation/Skin Start: 11/04/23 17:57 Freq: Status: Active Protocol: Document 11/05/23 09:02 NM (Rec: 11/05/23 09:48 NM [id number]) Posture Evaluation Position Standing Head/C-Spine Posture Forward Head T-Spine Posture Increased Kyphosis Weight Distribution Decreased Wt.Bear on (R) Hip Posture (L) Externally Rotated,(R) Externally Rotated Knee Posture (L) Genu Valgus,(R) Genu Valgus Patellar Posture (L) Superior,(R) Superior Ankle/Foot Posture (L) Pronated,(R) Pronated Foot Arch (L) Medium Arch,(R) Medium Arch Comments Posture Comments Tendency for hyperextension L knee Palpation Assessment Location R knee Palpation Location medial joint line, anterior knee, patella, MCL, pes anserine Palpation Findings Soft Tissue Tightness, Tenderness Palpation Details Tenderness along medial joint line, MCL distally. No increased MCL thickness. No tenderness laterally on knee or at patellar tendon. No tenderness at pes anserine insertion PT-OP-K Range of Motion Start: 11/04/23 17:57 Freq: Status: Active Protocol: Document 11/05/23 09:02 NM (Rec: 11/05/23 09:48 NM [id number]) Hip Goniometric Range of Motion Hip Right Flexion w/Knee Flexed 105 Extension 10 Abduction 10 Left Flexion w/Knee Flexed 105 Extension 10 Abduction 10 Knee Goniometric Range of Motion Knee Left Flexion Active (degrees) 130 Flexion Passive (degrees) 130 Extension Active (degrees) 0 Hyper-Extension Active 2 Right Flexion Active (degrees) 125 Flexion Passive (degrees) 130 Extension Active (degrees) 2 Extension Passive (degrees) 0 Comments Pain with overpressure hyperextension Knee ROM Limitations Knee ROM Limitations Pain PT-OP-L Special Tests Start: 11/04/23 17:57 Freq: Status: Active Protocol: Document 11/05/23 09:02 NM (Rec: 11/05/23 09:48 NM [id number]) Special Tests Knee Special Tests Valgus Test Results - Comments 0, 30 deg. Painful but no increased mobility compared to LLE Varus Test Results - Comments 0, 30 deg Patellar Grind Test Test Results + Posterior Sag Test Results - Posterior Draw Test Results - Anterior Draw Test Results - Parul Test Test Results + Comments Painful on medial joint line, no clicking/popping/locking Elsa's Test Results - Thessaly Test Results + Comments 5 deg and 20 deg; reproduces familiar pain Apley's Compression Test Results + Comments Catching; reproduces familiar pain PT-OP-M Strength Start: 11/04/23 17:57 Freq: Status: Active Protocol: Document 11/05/23 09:02 NM (Rec: 11/05/23 09:48 NM [id number]) Hip Strength Hip Manual Muscle Testing Right Flexion (L2) 4 Good Extension (S1) 4- Good- Abduction 4- Good- Adduction 4 Good External Rotation 4 Good Internal Rotation 4 Good Left Flexion (L2) 4 Good Extension (S1) 4 Good Abduction 4 Good Adduction 4 Good External Rotation 4 Good Internal Rotation 4 Good Knee Strength Knee Manual Muscle Testing Left Flexion (S2) 4 Good Extension (L3) 4 Good Right Flexion (S2) 4- Good- Extension (L3) 4- Good- Comments No pain with resisted motions Ankle/Foot Strength Ankle and Foot Manual Muscle Testing Right Dorsiflexion (L4) 4 Good Plantarflexion (S1) 4 Good Left Dorsiflexion (L4) 4 Good Plantarflexion (S1) 4 Good PT-OP-Q Treatments Start: 11/04/23 17:57 Freq: Status: Active Protocol: Document 11/16/23 09:44 NM (Rec: 11/16/23 11:21 NM [id number]) Therapeutic Exercises Supine Exercises bridge Supine Exercise Name 1. toes elevated, 2. single leg bridge Side right Reps/Minutes 1. 1x10, 2. 3x5 Comments reports no pain; feels it in glutes; cued level pelvis Sidelying Exercises hip abduction Sidelying Exercise Name with hip IR Side right Resistance lvl 2 tb around ankles Reps/Minutes 2x10 Comments cued for hip ext/abd Sitting Exercises LAQ Side right Resistance 2# ankle weight Equipment Used 2#> 4# Reps/Minutes 1x5, 2x10 Comments reports no knee pain; cued TKE initially, improved with reps Standing Exercises heel/toe raise Standing Exercise Name wall for hand support, back support Side bilateral Resistance AROM Reps/Minutes 2x10 ea Comments cued for form, no rocking; reports no pain lateral step up Standing Exercise Name 4 Side right Resistance AROM Equipment Used flat hand support for balance Reps/Minutes 2x10 Comments cued limit LLE assist step up/back Standing Exercise Name 4 step Side right Resistance AROM Equipment Used flat hand support for balance Reps/Minutes 2x10 Comments cued for knee over ankle, minimize quad dominance squat Standing Exercise Name bottom taps to chair with foam Side bilateral Resistance lvl 2 tb around thighs Equipment Used mirror for visual cues Reps/Minutes 1x5 AROM for form, 2x12 Comments cued hip hinge, EUGENIO over ankle ; reports no pain with knee side steps Standing Exercise Name trialed in PT: added to HEP Side bilateral Resistance lvl 2 tb around ankles Equipment Used squat form Reps/Minutes 2x15 ft ea Comments cued hip hinge for increased glute, knee centered over ankle Other Exercises self soft tissue mobilization Other Exercise Name distal HS, calf Side right Equipment Used foam roller on mat Reps/Minutes 4 Comments reports HS most restricted, behind knee Manual Therapy Treatment Soft Tissue Mobilization R thigh Body Location posterior knee, HS Mobilization Type Rolling,Strumming Intensity/Depth Moderate Body Position Supine Comments Tenderness at distal hamstring , posterior knee. Not swollen, no bursa. Reports improvement with STM. Joint Mobilizations R knee Joint patellar, tibiofemoral joint Direction lateral>medial, medial tilts, superior/inferior, P-A and A-P at tibfem jt Grade III Body Position Supine Reps/Duration 1x10 ea Comments 1. supine: Improved patellar glide all directions. No pain with patellar glides 2. sitting: tibial ER with knee ext for screwhome, tibial IR with knee flexion. No pain with flex or extension Self-Care/Home Management Treatment Education Patient Education Home Exercise Program Other Education HEP: single leg bridge, side steps with band, squat with band to chair PT-OP-T Assessment and Plan Start: 11/04/23 17:57 Freq: Status: Active Protocol: Document 11/16/23 09:44 NM (Rec: 11/16/23 11:21 NM [id number]) Physical Therapy Assessment Goals Five Impairment HEP Impairment no daily HEP/exercise program Short Term Goal (STG) Pt will report compliance with HEP 2-3x/wk in order to maximize gains made during PT sessions and demonstrate improved activity tolerance. STG Duration 3 weeks Odd Shoe Examiner Goal (LTG) Pt will report compliance with HEP 2-3x/wk and/or establish walking program 2-3x/wk for maintenance after PT and demonstrate improved activity tolerance. LTG Duration 6 weeks Four Impairment sleep Impairment pain with position during sleep Odd Shoe Examiner Goal (LTG) Pt will report no R knee pain when changing sleep positions in order to demonstrate improved pain management and sleeping posture LTG Duration 6 weeks Three Impairment function Impairment pain with stairs Short Term Goal (STG) Pt will be able to perform at least 10 eccentric step downs with R knee pain <4/10 and without compensation in order to demonstrate improved knee stability and control during stairs STG Duration 3 weeks Odd Shoe Examiner Goal (LTG) Pt will be able to perform at least 12 stairs with or without a hand rail with R knee pain <4/10 and without compensation in order to demonstrate improved knee stability and control during stairs. LTG Duration 6 weeks Two Impairment function Impairment 10 bilateral squats with pain, compensation Short Term Goal (STG) Pt will be able to perform at least 10 bilateral squats above 90 deg without compensation and pain <4/10 in order demonstrate improved hip and knee strength for ADLs , stairs STG Duration 3 weeks Fci Goal (LTG) Pt will be able to perform at least 15 bilateral squats above 90 deg without compensation and pain <4/10 in order demonstrate improved hip and knee strength for ADLs , stairs LTG Duration 6 weeks One Impairment strength Impairment R knee flex/ext strength 4-/5 MMT Short Term Goal (STG) Pt will improve R knee flex/ ext MMT to at least 4/5 in order to demonstrate increased knee strength for ADLs, gait STG Duration 3 weeks Odd Shoe Examiner Goal (LTG) Pt will improve R knee flex/ ext MMT to at least 4+/5 in order to demonstrate increased knee strength for ADLs, gait LTG Duration 6 weeks Assessment Summary Assessment Pt tolerated session well without any reports of increase in R knee pain except in step ups. Initiated forward and lateral 4 step up , goal to minimize quad dominance with step ups. Reports minimal discomfort in anterior knee during 4 step up. Cued for increased glute activation with hip hinge, limit knee over ankle. Continued with strengthening R glute/hip abductors and quad. Progressed to single leg bridge and side steps. Pt demos good form with activity with few compensations. Initiated banded squat to elevated chair for movement re -education; with verbal, tactile, and visual cues, pt able to perform with fewer compensations and pain free. Manual tx to improve R knee AROM; demos improvements in patellar mobility, TKE and flexion with initiation of screwhome mechanics. Pt would benefit from skilled PT for progressive R hip/knee strengthening and R knee mobility in order to decrease pain symptoms, improve activity tolerance, and return to PLOF. Physical Therapy Plan Frequency and Duration Frequency of Treatment 2x/Week Duration of treatment (weeks) 6 Plan of Care Start Date 11/05/23 Plan of Care End Date 12/25/23 Therapeutic Interventions Therapeutic Interventions Aquatic Therapy,Balance Training,Coordination Training ,Gait Training,Home Exercise Program,Joint Mobilizations, Manual Therapy,Neuromuscular Re-education,Orthotic/ Prosthetic Management,Patient/ Caregiver Education,Self-Care/ Home Management,Sensory Integration,Soft Tissue Mobilization,Taping, Therapeutic Activities, Therapeutic Exercises Modalities Biofeedback,Cold Pack/Ice Massage,Electric Stimulation, Hot Packs,Ultrasound, Vasopneumatic Devices Next Visit Focus/Plan Next Note Type Treatment Note Next Visit Plan Review: 4 step up, lateral step up (progress - touch down ?), squat retrain (lower depth ), side steps, leg press ( trial) Trial 4-6 step ups, step downs, squat with limited depth and hip abduction/glute, trial leg press if time
--- NOTE | 2023-11-19 10:41 | PT.OTN ---
Current Diagnoses Other chronic pain (11/19/23) Pain in right knee (11/19/23) Other lack of coordination (11/19/23) Weakness (11/19/23) Physical Therapy Treatment Note PT-OP-A Visit Information Start: 11/04/23 17:57 Freq: Status: Active Protocol: Document 11/19/23 09:52 NM (Rec: 11/19/23 10:32 NM [id number]) Out-Patient Physical Therapy Visit Information Visit Information Visit Type Treatment Note Visit Start Time 09:50 Visit Stop Time 10:35 Visit Number 4/6 Evaluation Information Evaluation Date 11/05/23 Precautions Precautions No twisting, limit squat depth PT-OP-B Current Condition Start: 11/04/23 17:57 Freq: Status: Active Protocol: Document 11/05/23 09:02 NM (Rec: 11/05/23 09:48 NM [id number]) Current Condition History of Current Condition Onset Date April 2023 Current Complaints pain, catching/locking, warm History of Current Condition Pt presents with R knee pain, beginning at least 6 months ago. She reports that her knee feels like it wants to pop. She thinks that it occurred when her large dog ran into her leg from outside. Reports no falls, twists, or other injuries. No previous injuries or surgeries. Her R knee pain wakes her up with positional changes; pain also with squatting, walking or standing during her classes (1.5 hrs), descending stairs, pivoting/ turning. She reports that it doesn't prevent her from ADLs, but is aggravating. She has been squatting ea day, which can cause pain. She walks a few times/wk occasionally, but otherwise not active. Pt states that her R knee feels like it could give out and is loose but hasn't had any instances of her knee buckling . Pt's knee aches with sitting ; she also reports that occasionally she gets locking, clicking, or feels stuck. Prior Treatments and Tests No imaging performed (ordered PT first), no previous treatments Current Functional Impairments (Reported) Functional Limitations- ADL's pain with sleeping position Functional Limitations- Mobility/Gait 1.5 hrs stand/walk; difficulty with declines/stairs due to pain Functional Limitations- Work/School 1.5 hr stand/walk before requires seated rest break due to pain PT-OP-C Subjective Start: 11/04/23 17:57 Freq: Status: Active Protocol: Document 11/19/23 09:52 NM (Rec: 11/19/23 10:32 NM [id number]) OP-PT Subjective Patient Comments Patient Comments Pt reports her R knee is more sore today, primarily in her posterior knee. She reports that her R knee feels ok after exercise/HEP but it hurts more after several hours later usually when sitting (e.g.e evening). Last night she had pain with sleep when pillow moved, better once pillow in place. PT-OP-D Balance Start: 11/04/23 17:57 Freq: Status: Active Protocol: Document 11/05/23 09:02 NM (Rec: 11/05/23 09:48 NM [id number]) Balance Tests Romberg Romberg 30 seconds Single Limb Standing Single Limb- Right 15 seconds, increased sway/ instability Single Limb- Left 15 seconds Tandem Tandem Standing 10 seconds PT-OP-E Functional Tests Start: 11/04/23 17:57 Freq: Status: Active Protocol: Document 11/05/23 09:02 NM (Rec: 11/05/23 09:48 NM [id number]) Functional Tests Squat Test Score 10 Comments knee valgus, decreased depth; rotates L, painful PT-OP-F Manual Assessment Start: 11/04/23 17:57 Freq: Status: Active Protocol: Document 11/05/23 09:02 NM (Rec: 11/05/23 09:48 NM [id number]) Manual Assessments Soft Tissue Assessment Soft Tissue Mobility Assessment Tenderness and tightness in popliteal fossa. Slight hamstring tightness, but not formally measured Joint Mobility Assessment Joint Mobility Assessment No clicking or locking with instability tests. Pain with MCL test, but no increased mobility. R knee joint compression is painful, worse with rotation. Decreased patellar mobility globally. Pain with overpressure R knee extension PT-OP-G Mobility & Gait Start: 11/04/23 17:57 Freq: Status: Active Protocol: Document 11/05/23 09:02 NM (Rec: 11/05/23 09:48 NM [id number]) OP Gait Assessment Gait Gait Assistance Required: Independent Distance (Feet) 200 Assistive Devices Assistive Device None Gait Deviations General Gait Pattern Antalgic Factors Limiting Gait Function Factors Limiting Gait Function Decreased Activity Tolerance Comments Gait Comments No TKE R knee in stance, decreased stance time. PT-OP-H Neuro Start: 11/04/23 17:57 Freq: Status: Active Protocol: Document 11/05/23 09:02 NM (Rec: 11/05/23 09:48 NM [id number]) Sensation Evaluation Comments Summary Comments BLE intact to light touch sensation equally PT-OP-J Posture/Palpation/Skin Start: 11/04/23 17:57 Freq: Status: Active Protocol: Document 11/05/23 09:02 NM (Rec: 11/05/23 09:48 NM [id number]) Posture Evaluation Position Standing Head/C-Spine Posture Forward Head T-Spine Posture Increased Kyphosis Weight Distribution Decreased Wt.Bear on (R) Hip Posture (L) Externally Rotated,(R) Externally Rotated Knee Posture (L) Genu Valgus,(R) Genu Valgus Patellar Posture (L) Superior,(R) Superior Ankle/Foot Posture (L) Pronated,(R) Pronated Foot Arch (L) Medium Arch,(R) Medium Arch Comments Posture Comments Tendency for hyperextension L knee Palpation Assessment Location R knee Palpation Location medial joint line, anterior knee, patella, MCL, pes anserine Palpation Findings Soft Tissue Tightness, Tenderness Palpation Details Tenderness along medial joint line, MCL distally. No increased MCL thickness. No tenderness laterally on knee or at patellar tendon. No tenderness at pes anserine insertion PT-OP-K Range of Motion Start: 11/04/23 17:57 Freq: Status: Active Protocol: Document 11/05/23 09:02 NM (Rec: 11/05/23 09:48 NM [id number]) Hip Goniometric Range of Motion Hip Right Flexion w/Knee Flexed 105 Extension 10 Abduction 10 Left Flexion w/Knee Flexed 105 Extension 10 Abduction 10 Knee Goniometric Range of Motion Knee Left Flexion Active (degrees) 130 Flexion Passive (degrees) 130 Extension Active (degrees) 0 Hyper-Extension Active 2 Right Flexion Active (degrees) 125 Flexion Passive (degrees) 130 Extension Active (degrees) 2 Extension Passive (degrees) 0 Comments Pain with overpressure hyperextension Knee ROM Limitations Knee ROM Limitations Pain PT-OP-L Special Tests Start: 11/04/23 17:57 Freq: Status: Active Protocol: Document 11/05/23 09:02 NM (Rec: 11/05/23 09:48 NM [id number]) Special Tests Knee Special Tests Valgus Test Results - Comments 0, 30 deg. Painful but no increased mobility compared to LLE Varus Test Results - Comments 0, 30 deg Patellar Grind Test Test Results + Posterior Sag Test Results - Posterior Draw Test Results - Anterior Draw Test Results - Parul Test Test Results + Comments Painful on medial joint line, no clicking/popping/locking Elsa's Test Results - Thessaly Test Results + Comments 5 deg and 20 deg; reproduces familiar pain Apley's Compression Test Results + Comments Catching; reproduces familiar pain PT-OP-M Strength Start: 11/04/23 17:57 Freq: Status: Active Protocol: Document 11/05/23 09:02 NM (Rec: 11/05/23 09:48 NM [id number]) Hip Strength Hip Manual Muscle Testing Right Flexion (L2) 4 Good Extension (S1) 4- Good- Abduction 4- Good- Adduction 4 Good External Rotation 4 Good Internal Rotation 4 Good Left Flexion (L2) 4 Good Extension (S1) 4 Good Abduction 4 Good Adduction 4 Good External Rotation 4 Good Internal Rotation 4 Good Knee Strength Knee Manual Muscle Testing Left Flexion (S2) 4 Good Extension (L3) 4 Good Right Flexion (S2) 4- Good- Extension (L3) 4- Good- Comments No pain with resisted motions Ankle/Foot Strength Ankle and Foot Manual Muscle Testing Right Dorsiflexion (L4) 4 Good Plantarflexion (S1) 4 Good Left Dorsiflexion (L4) 4 Good Plantarflexion (S1) 4 Good PT-OP-Q Treatments Start: 11/04/23 17:57 Freq: Status: Active Protocol: Document 11/19/23 09:52 NM (Rec: 11/19/23 10:32 NM [id number]) Gym Equipment Shuttle Recovery R squat Details cued knee alignment w ankle Resistance 50# (2 navy) Shuttle Recovery Platform Stable Reps/Time 2x8 B squat Details cued TKE w/o lock, cued weight over midfoot Resistance 75# (3 navy) Shuttle Recovery Platform Stable Reps/Time 2x10 Therapeutic Exercises Standing Exercises lateral step up Standing Exercise Name 4 > 6 Side right Resistance lvl 2 tb around thighs Equipment Used flat hand support for balance Reps/Minutes 2x10 Comments improved hip level w 4, cued lvl hip w 6 step up/back Standing Exercise Name 4 step Side right Resistance lvl 2 tb around thighs Equipment Used flat hand support for balance Reps/Minutes 3x8 Comments cued for knee over ankle, minimize quad dominance side steps Standing Exercise Name 1. side steps, 2. resisted fwd walking with abd Side bilateral Resistance lvl 3 tb around ankles side step, lvl 2 thigh fwd Equipment Used squat form Reps/Minutes 2x20 ft ea Comments no knee pain Manual Therapy Treatment Soft Tissue Mobilization R thigh Body Location posterior knee, HS, quad, sartorius Mobilization Type Instrument Assisted,Rolling, Strumming Intensity/Depth Moderate Body Position Supine Comments Tenderness at distal hamstring , posterior knee. Slightly swollen, no bursa. Reports improvement with STM. Increased restriction R quad, near mid muscle belly, and sartorius, improved with rolling Joint Mobilizations R knee Joint patellar Direction lateral>medial, medial tilts, superior/inferior Grade III Body Position Supine Reps/Duration 1x10 ea Comments Decreased patellar mobility into medial, superior, medial tilt today, increased clicking but not painful PT-OP-R Modalities Start: 11/04/23 17:57 Freq: Status: Active Protocol: Document 11/19/23 09:52 NM (Rec: 11/19/23 10:34 NM [id number]) Hot Pack/Cold Pack Treatment Cold Pack Location R ant/post knee Patient Position Sitting Comments Sitting with leg elevated. Pt wearing pants, unable to assess skin before/after. Towel between pt pants and cold pack. Pt sitting with collier within reach, 5 minutes. Tolerated well. PT-OP-T Assessment and Plan Start: 11/04/23 17:57 Freq: Status: Active Protocol: Document 11/19/23 09:52 NM (Rec: 11/19/23 10:32 NM [id number]) Physical Therapy Assessment Goals Five Impairment HEP Impairment no daily HEP/exercise program Short Term Goal (STG) Pt will report compliance with HEP 2-3x/wk in order to maximize gains made during PT sessions and demonstrate improved activity tolerance. STG Duration 3 weeks Geotechnical Engineering Technician Goal (LTG) Pt will report compliance with HEP 2-3x/wk and/or establish walking program 2-3x/wk for maintenance after PT and demonstrate improved activity tolerance. LTG Duration 6 weeks Four Impairment sleep Impairment pain with position during sleep Residential Goal (LTG) Pt will report no R knee pain when changing sleep positions in order to demonstrate improved pain management and sleeping posture LTG Duration 6 weeks Three Impairment function Impairment pain with stairs Short Term Goal (STG) Pt will be able to perform at least 10 eccentric step downs with R knee pain <4/10 and without compensation in order to demonstrate improved knee stability and control during stairs STG Duration 3 weeks Residential Goal (LTG) Pt will be able to perform at least 12 stairs with or without a hand rail with R knee pain <4/10 and without compensation in order to demonstrate improved knee stability and control during stairs. LTG Duration 6 weeks Two Impairment function Impairment 10 bilateral squats with pain, compensation Short Term Goal (STG) Pt will be able to perform at least 10 bilateral squats above 90 deg without compensation and pain <4/10 in order demonstrate improved hip and knee strength for ADLs , stairs STG Duration 3 weeks Residential Goal (LTG) Pt will be able to perform at least 15 bilateral squats above 90 deg without compensation and pain <4/10 in order demonstrate improved hip and knee strength for ADLs , stairs LTG Duration 6 weeks One Impairment strength Impairment R knee flex/ext strength 4-/5 MMT Short Term Goal (STG) Pt will improve R knee flex/ ext MMT to at least 4/5 in order to demonstrate increased knee strength for ADLs, gait STG Duration 3 weeks Geotechnical Engineering Technician Goal (LTG) Pt will improve R knee flex/ ext MMT to at least 4+/5 in order to demonstrate increased knee strength for ADLs, gait LTG Duration 6 weeks Assessment Summary Assessment Pt continues to improve with R knee strength and activity tolerance. Trialed leg press with B and RLE squat. PT cued pt for knee alignment over toe , minimal knee pain until pt elevated feet a little more to decrease squat depth. Continued with 4 step up and progressed to 6, cueing for level pelvis and to decreased quad dominance with step up. Pt continues to demonstrate good form with side steps, lateral step ups; would benefit from further glute medius strengthening, but responds well to exercises targeting increased glute activation due to offloading quads. PT educated pt on activity modification with ADLs, modalities for pain relief with leg elevation more frequently to assist with pain management at end of day. Manual treatment to improve patellar mobility, decrease soft tissue restrictions of R hamstring. Finished with cold pack to address swelling in posterior knee. Pt would benefit from skilled PT for progressive BLE strengthening of hips/knees, biomechanics training, and activity modification to reduce pain symptoms and improve activity tolerance. Physical Therapy Plan Frequency and Duration Frequency of Treatment 2x/Week Duration of treatment (weeks) 6 Plan of Care Start Date 11/05/23 Plan of Care End Date 12/25/23 Therapeutic Interventions Therapeutic Interventions Aquatic Therapy,Balance Training,Coordination Training ,Gait Training,Home Exercise Program,Joint Mobilizations, Manual Therapy,Neuromuscular Re-education,Orthotic/ Prosthetic Management,Patient/ Caregiver Education,Self-Care/ Home Management,Sensory Integration,Soft Tissue Mobilization,Taping, Therapeutic Activities, Therapeutic Exercises Modalities Biofeedback,Cold Pack/Ice Massage,Electric Stimulation, Hot Packs,Ultrasound, Vasopneumatic Devices Next Visit Focus/Plan Next Note Type Treatment Note Next Visit Plan Review: 6 step up, trial touch down, eccentric knee, [place] squat, leg pres, squat retrain (lower depth), side steps. Continue with glute med /max strengthening. LAQ cables
--- NOTE | 2023-11-23 12:29 | PT.OTN ---
Current Diagnoses Other chronic pain (11/23/23) Pain in right knee (11/23/23) Other lack of coordination (11/23/23) Weakness (11/23/23) Physical Therapy Treatment Note PT-OP-A Visit Information Start: 11/04/23 17:57 Freq: Status: Active Protocol: Document 11/23/23 08:49 AB (Rec: 11/23/23 12:29 AB [id number]) Out-Patient Physical Therapy Visit Information Visit Information Visit Type Treatment Note Visit Note Access Code: [email or web address] Visit Start Time 09:48 Visit Stop Time 10:31 Visit Number 5/6 Evaluation Information Evaluation Date 11/05/23 Precautions Precautions No twisting, limit squat depth PT-OP-B Current Condition Start: 11/04/23 17:57 Freq: Status: Active Protocol: Document 11/05/23 09:02 NM (Rec: 11/05/23 09:48 NM [id number]) Current Condition History of Current Condition Onset Date April 2023 Current Complaints pain, catching/locking, warm History of Current Condition Pt presents with R knee pain, beginning at least 6 months ago. She reports that her knee feels like it wants to pop. She thinks that it occurred when her large dog ran into her leg from outside. Reports no falls, twists, or other injuries. No previous injuries or surgeries. Her R knee pain wakes her up with positional changes; pain also with squatting, walking or standing during her classes (1.5 hrs), descending stairs, pivoting/ turning. She reports that it doesn't prevent her from ADLs, but is aggravating. She has been squatting ea day, which can cause pain. She walks a few times/wk occasionally, but otherwise not active. Pt states that her R knee feels like it could give out and is loose but hasn't had any instances of her knee buckling . Pt's knee aches with sitting ; she also reports that occasionally she gets locking, clicking, or feels stuck. Prior Treatments and Tests No imaging performed (ordered PT first), no previous treatments Current Functional Impairments (Reported) Functional Limitations- ADL's pain with sleeping position Functional Limitations- Mobility/Gait 1.5 hrs stand/walk; difficulty with declines/stairs due to pain Functional Limitations- Work/School 1.5 hr stand/walk before requires seated rest break due to pain PT-OP-C Subjective Start: 11/04/23 17:57 Freq: Status: Active Protocol: Document 11/23/23 08:49 AB (Rec: 11/23/23 12:29 AB [id number]) OP-PT Subjective Patient Comments Patient Comments Patient reports the back of the knee is more painful, constant aching pain. PT-OP-D Balance Start: 11/04/23 17:57 Freq: Status: Active Protocol: Document 11/05/23 09:02 NM (Rec: 11/05/23 09:48 NM [id number]) Balance Tests Romberg Romberg 30 seconds Single Limb Standing Single Limb- Right 15 seconds, increased sway/ instability Single Limb- Left 15 seconds Tandem Tandem Standing 10 seconds PT-OP-E Functional Tests Start: 11/04/23 17:57 Freq: Status: Active Protocol: Document 11/05/23 09:02 NM (Rec: 11/05/23 09:48 NM [id number]) Functional Tests Squat Test Score 10 Comments knee valgus, decreased depth; rotates L, painful PT-OP-F Manual Assessment Start: 11/04/23 17:57 Freq: Status: Active Protocol: Document 11/05/23 09:02 NM (Rec: 11/05/23 09:48 NM [id number]) Manual Assessments Soft Tissue Assessment Soft Tissue Mobility Assessment Tenderness and tightness in popliteal fossa. Slight hamstring tightness, but not formally measured Joint Mobility Assessment Joint Mobility Assessment No clicking or locking with instability tests. Pain with MCL test, but no increased mobility. R knee joint compression is painful, worse with rotation. Decreased patellar mobility globally. Pain with overpressure R knee extension PT-OP-G Mobility & Gait Start: 11/04/23 17:57 Freq: Status: Active Protocol: Document 11/05/23 09:02 NM (Rec: 11/05/23 09:48 NM [id number]) OP Gait Assessment Gait Gait Assistance Required: Independent Distance (Feet) 200 Assistive Devices Assistive Device None Gait Deviations General Gait Pattern Antalgic Factors Limiting Gait Function Factors Limiting Gait Function Decreased Activity Tolerance Comments Gait Comments No TKE R knee in stance, decreased stance time. PT-OP-H Neuro Start: 11/04/23 17:57 Freq: Status: Active Protocol: Document 11/05/23 09:02 NM (Rec: 11/05/23 09:48 NM [id number]) Sensation Evaluation Comments Summary Comments BLE intact to light touch sensation equally PT-OP-J Posture/Palpation/Skin Start: 11/04/23 17:57 Freq: Status: Active Protocol: Document 11/05/23 09:02 NM (Rec: 11/05/23 09:48 NM [id number]) Posture Evaluation Position Standing Head/C-Spine Posture Forward Head T-Spine Posture Increased Kyphosis Weight Distribution Decreased Wt.Bear on (R) Hip Posture (L) Externally Rotated,(R) Externally Rotated Knee Posture (L) Genu Valgus,(R) Genu Valgus Patellar Posture (L) Superior,(R) Superior Ankle/Foot Posture (L) Pronated,(R) Pronated Foot Arch (L) Medium Arch,(R) Medium Arch Comments Posture Comments Tendency for hyperextension L knee Palpation Assessment Location R knee Palpation Location medial joint line, anterior knee, patella, MCL, pes anserine Palpation Findings Soft Tissue Tightness, Tenderness Palpation Details Tenderness along medial joint line, MCL distally. No increased MCL thickness. No tenderness laterally on knee or at patellar tendon. No tenderness at pes anserine insertion PT-OP-K Range of Motion Start: 11/04/23 17:57 Freq: Status: Active Protocol: Document 11/05/23 09:02 NM (Rec: 11/05/23 09:48 NM [id number]) Hip Goniometric Range of Motion Hip Right Flexion w/Knee Flexed 105 Extension 10 Abduction 10 Left Flexion w/Knee Flexed 105 Extension 10 Abduction 10 Knee Goniometric Range of Motion Knee Left Flexion Active (degrees) 130 Flexion Passive (degrees) 130 Extension Active (degrees) 0 Hyper-Extension Active 2 Right Flexion Active (degrees) 125 Flexion Passive (degrees) 130 Extension Active (degrees) 2 Extension Passive (degrees) 0 Comments Pain with overpressure hyperextension Knee ROM Limitations Knee ROM Limitations Pain PT-OP-L Special Tests Start: 11/04/23 17:57 Freq: Status: Active Protocol: Document 11/05/23 09:02 NM (Rec: 11/05/23 09:48 NM [id number]) Special Tests Knee Special Tests Valgus Test Results - Comments 0, 30 deg. Painful but no increased mobility compared to LLE Varus Test Results - Comments 0, 30 deg Patellar Grind Test Test Results + Posterior Sag Test Results - Posterior Draw Test Results - Anterior Draw Test Results - Parul Test Test Results + Comments Painful on medial joint line, no clicking/popping/locking Elsa's Test Results - Thessaly Test Results + Comments 5 deg and 20 deg; reproduces familiar pain Apley's Compression Test Results + Comments Catching; reproduces familiar pain PT-OP-M Strength Start: 11/04/23 17:57 Freq: Status: Active Protocol: Document 11/05/23 09:02 NM (Rec: 11/05/23 09:48 NM [id number]) Hip Strength Hip Manual Muscle Testing Right Flexion (L2) 4 Good Extension (S1) 4- Good- Abduction 4- Good- Adduction 4 Good External Rotation 4 Good Internal Rotation 4 Good Left Flexion (L2) 4 Good Extension (S1) 4 Good Abduction 4 Good Adduction 4 Good External Rotation 4 Good Internal Rotation 4 Good Knee Strength Knee Manual Muscle Testing Left Flexion (S2) 4 Good Extension (L3) 4 Good Right Flexion (S2) 4- Good- Extension (L3) 4- Good- Comments No pain with resisted motions Ankle/Foot Strength Ankle and Foot Manual Muscle Testing Right Dorsiflexion (L4) 4 Good Plantarflexion (S1) 4 Good Left Dorsiflexion (L4) 4 Good Plantarflexion (S1) 4 Good PT-OP-Q Treatments Start: 11/04/23 17:57 Freq: Status: Active Protocol: Document 11/23/23 08:49 AB (Rec: 11/23/23 12:29 AB [id number]) Therapeutic Exercises Supine Exercises hamstring stretch Supine Exercise Name hooklying and with LE on mat, seated initiated Reps/Minutes 60 seconds X 2 Comments Verbal cues for LE positioning , trunk positioning, hooklying to HEP Standing Exercises single leg lift to mat Side right Reps/Minutes X10 Comments verbal and visual cues step up/back Standing Exercise Name 6 inch not miles 4 inch miles Side right Reps/Minutes 2X10 Comments reports no increased pain with 4 inch step squat Side bilateral Resistance lvl 2 tb around thighs Reps/Minutes X15 Comments Monitored for pain Manual Therapy Treatment Soft Tissue Mobilization right quad Body Location right quad distally and medial right knee areas of increased density Mobilization Type Cross-Friction,Rolling Intensity/Depth Moderate Body Position Hooklying Comments Andreas for pain R thigh Body Location posterior knee, HS Mobilization Type Cross-Friction,Instrument Assisted,Rolling Intensity/Depth Moderate Body Position Supine Comments X15 prone quad sets performed during STM, also STM performed with muscles relaxed Self-Care/Home Management Treatment Education Other Education Patient ed trial of STM prior to sitting in chair, HS stretch prior to sleep. Activities Self-Care/Home Management Activities Single leg lift to mat, hooklying hamstring stretch and seated hip abd with band activation added to HEP PT-OP-R Modalities Start: 11/04/23 17:57 Freq: Status: Active Protocol: Document 11/19/23 09:52 NM (Rec: 11/19/23 10:34 NM [id number]) Hot Pack/Cold Pack Treatment Cold Pack Location R ant/post knee Patient Position Sitting Comments Sitting with leg elevated. Pt wearing pants, unable to assess skin before/after. Towel between pt pants and cold pack. Pt sitting with collier within reach, 5 minutes. Tolerated well. PT-OP-T Assessment and Plan Start: 11/04/23 17:57 Freq: Status: Active Protocol: Document 11/23/23 08:49 AB (Rec: 11/23/23 12:29 AB [id number]) Physical Therapy Assessment Goals Five Impairment HEP Impairment no daily HEP/exercise program Short Term Goal (STG) Pt will report compliance with HEP 2-3x/wk in order to maximize gains made during PT sessions and demonstrate improved activity tolerance. STG Duration 3 weeks Senior Care Goal (LTG) Pt will report compliance with HEP 2-3x/wk and/or establish walking program 2-3x/wk for maintenance after PT and demonstrate improved activity tolerance. LTG Duration 6 weeks Four Impairment sleep Impairment pain with position during sleep Senior Care Goal (LTG) Pt will report no R knee pain when changing sleep positions in order to demonstrate improved pain management and sleeping posture LTG Duration 6 weeks Three Impairment function Impairment pain with stairs Short Term Goal (STG) Pt will be able to perform at least 10 eccentric step downs with R knee pain <4/10 and without compensation in order to demonstrate improved knee stability and control during stairs STG Duration 3 weeks Senior Care Goal (LTG) Pt will be able to perform at least 12 stairs with or without a hand rail with R knee pain <4/10 and without compensation in order to demonstrate improved knee stability and control during stairs. LTG Duration 6 weeks Two Impairment function Impairment 10 bilateral squats with pain, compensation Short Term Goal (STG) Pt will be able to perform at least 10 bilateral squats above 90 deg without compensation and pain <4/10 in order demonstrate improved hip and knee strength for ADLs , stairs STG Duration 3 weeks Information Assurance Officer Goal (LTG) Pt will be able to perform at least 15 bilateral squats above 90 deg without compensation and pain <4/10 in order demonstrate improved hip and knee strength for ADLs , stairs LTG Duration 6 weeks One Impairment strength Impairment R knee flex/ext strength 4-/5 MMT Short Term Goal (STG) Pt will improve R knee flex/ ext MMT to at least 4/5 in order to demonstrate increased knee strength for ADLs, gait STG Duration 3 weeks Information Assurance Officer Goal (LTG) Pt will improve R knee flex/ ext MMT to at least 4+/5 in order to demonstrate increased knee strength for ADLs, gait LTG Duration 6 weeks Assessment Summary Assessment Pt. reports knee is a little achy end of session, pain with 6 inch step up step back persists, but no pain with 4 inch step up step back. Physical Therapy Plan Frequency and Duration Frequency of Treatment 2x/Week Duration of treatment (weeks) 6 Plan of Care Start Date 11/05/23 Plan of Care End Date 12/25/23 Next Visit Focus/Plan Next Note Type Treatment Note Next Visit Plan Review: 6 step up, trial touch down, eccentric knee, b[place] squat, leg pres, squat retrain (lower depth), side steps. Continue with glute med /max strengthening. LAQ cables
--- NOTE | 2023-11-30 16:14 | PT.OTN ---
Current Diagnoses Other chronic pain (11/30/23) Pain in right knee (11/30/23) Other lack of coordination (11/30/23) Weakness (11/30/23) Physical Therapy Treatment Note PT-OP-A Visit Information Start: 11/04/23 17:57 Freq: Status: Active Protocol: Document 11/30/23 09:46 NM (Rec: 11/30/23 10:32 NM [id number]) Out-Patient Physical Therapy Visit Information Visit Information Visit Type Treatment Note Visit Start Time 09:46 Visit Stop Time 10:30 Visit Number 6/6 Evaluation Information Evaluation Date 11/05/23 PT-OP-B Current Condition Start: 11/04/23 17:57 Freq: Status: Active Protocol: Document 11/05/23 09:02 NM (Rec: 11/05/23 09:48 NM [id number]) Current Condition History of Current Condition Onset Date April 2023 Current Complaints pain, catching/locking, warm History of Current Condition Pt presents with R knee pain, beginning at least 6 months ago. She reports that her knee feels like it wants to pop. She thinks that it occurred when her large dog ran into her leg from outside. Reports no falls, twists, or other injuries. No previous injuries or surgeries. Her R knee pain wakes her up with positional changes; pain also with squatting, walking or standing during her classes (1.5 hrs), descending stairs, pivoting/ turning. She reports that it doesn't prevent her from ADLs, but is aggravating. She has been squatting ea day, which can cause pain. She walks a few times/wk occasionally, but otherwise not active. Pt states that her R knee feels like it could give out and is loose but hasn't had any instances of her knee buckling . Pt's knee aches with sitting ; she also reports that occasionally she gets locking, clicking, or feels stuck. Prior Treatments and Tests No imaging performed (ordered PT first), no previous treatments Current Functional Impairments (Reported) Functional Limitations- ADL's pain with sleeping position Functional Limitations- Mobility/Gait 1.5 hrs stand/walk; difficulty with declines/stairs due to pain Functional Limitations- Work/School 1.5 hr stand/walk before requires seated rest break due to pain PT-OP-C Subjective Start: 11/04/23 17:57 Freq: Status: Active Protocol: Document 11/30/23 09:46 NM (Rec: 11/30/23 10:32 NM [id number]) OP-PT Subjective Patient Comments Patient Comments Pt reports that her posterior knee is sore. She spent a lot of time walking and working over the weekend. She reports that her knee doesn't click as much anymore, less feelings of instability, stronger. Pt reports that her pain levels have been 4/10 or less, today is achy sore. PT-OP-D Balance Start: 11/04/23 17:57 Freq: Status: Active Protocol: Document 11/05/23 09:02 NM (Rec: 11/05/23 09:48 NM [id number]) Balance Tests Romberg Romberg 30 seconds Single Limb Standing Single Limb- Right 15 seconds, increased sway/ instability Single Limb- Left 15 seconds Tandem Tandem Standing 10 seconds PT-OP-E Functional Tests Start: 11/04/23 17:57 Freq: Status: Active Protocol: Document 11/05/23 09:02 NM (Rec: 11/05/23 09:48 NM [id number]) Functional Tests Squat Test Score 10 Comments knee valgus, decreased depth; rotates L, painful PT-OP-F Manual Assessment Start: 11/04/23 17:57 Freq: Status: Active Protocol: Document 11/05/23 09:02 NM (Rec: 11/05/23 09:48 NM [id number]) Manual Assessments Soft Tissue Assessment Soft Tissue Mobility Assessment Tenderness and tightness in popliteal fossa. Slight hamstring tightness, but not formally measured Joint Mobility Assessment Joint Mobility Assessment No clicking or locking with instability tests. Pain with MCL test, but no increased mobility. R knee joint compression is painful, worse with rotation. Decreased patellar mobility globally. Pain with overpressure R knee extension PT-OP-G Mobility & Gait Start: 11/04/23 17:57 Freq: Status: Active Protocol: Document 11/05/23 09:02 NM (Rec: 11/05/23 09:48 NM [id number]) OP Gait Assessment Gait Gait Assistance Required: Independent Distance (Feet) 200 Assistive Devices Assistive Device None Gait Deviations General Gait Pattern Antalgic Factors Limiting Gait Function Factors Limiting Gait Function Decreased Activity Tolerance Comments Gait Comments No TKE R knee in stance, decreased stance time. PT-OP-H Neuro Start: 11/04/23 17:57 Freq: Status: Active Protocol: Document 11/05/23 09:02 NM (Rec: 11/05/23 09:48 NM [id number]) Sensation Evaluation Comments Summary Comments BLE intact to light touch sensation equally PT-OP-J Posture/Palpation/Skin Start: 11/04/23 17:57 Freq: Status: Active Protocol: Document 11/05/23 09:02 NM (Rec: 11/05/23 09:48 NM [id number]) Posture Evaluation Position Standing Head/C-Spine Posture Forward Head T-Spine Posture Increased Kyphosis Weight Distribution Decreased Wt.Bear on (R) Hip Posture (L) Externally Rotated,(R) Externally Rotated Knee Posture (L) Genu Valgus,(R) Genu Valgus Patellar Posture (L) Superior,(R) Superior Ankle/Foot Posture (L) Pronated,(R) Pronated Foot Arch (L) Medium Arch,(R) Medium Arch Comments Posture Comments Tendency for hyperextension L knee Palpation Assessment Location R knee Palpation Location medial joint line, anterior knee, patella, MCL, pes anserine Palpation Findings Soft Tissue Tightness, Tenderness Palpation Details Tenderness along medial joint line, MCL distally. No increased MCL thickness. No tenderness laterally on knee or at patellar tendon. No tenderness at pes anserine insertion PT-OP-K Range of Motion Start: 11/04/23 17:57 Freq: Status: Active Protocol: Document 11/30/23 09:46 NM (Rec: 11/30/23 10:32 NM [id number]) Knee Goniometric Range of Motion Knee Right Flexion Active (degrees) 125 Flexion Passive (degrees) 130 Extension Active (degrees) 2 Extension Passive (degrees) 0 Comments Pain with overpressure hyperextension 11/30/23: 130 deg flex, 0 deg ext w.o pain in hyperextension PT-OP-L Special Tests Start: 11/04/23 17:57 Freq: Status: Active Protocol: Document 11/05/23 09:02 NM (Rec: 11/05/23 09:48 NM [id number]) Special Tests Knee Special Tests Valgus Test Results - Comments 0, 30 deg. Painful but no increased mobility compared to LLE Varus Test Results - Comments 0, 30 deg Patellar Grind Test Test Results + Posterior Sag Test Results - Posterior Draw Test Results - Anterior Draw Test Results - Parul Test Test Results + Comments Painful on medial joint line, no clicking/popping/locking Elsa's Test Results - Thessaly Test Results + Comments 5 deg and 20 deg; reproduces familiar pain Apley's Compression Test Results + Comments Catching; reproduces familiar pain PT-OP-M Strength Start: 11/04/23 17:57 Freq: Status: Active Protocol: Document 11/30/23 09:46 NM (Rec: 11/30/23 10:32 NM [id number]) Knee Strength Knee Manual Muscle Testing Left Flexion (S2) 4 Good Extension (L3) 4 Good Right Flexion (S2) 4- Good- Extension (L3) 4- Good- Comments No pain with resisted motions 11/30/23: 4/5, no pain PT-OP-Q Treatments Start: 11/04/23 17:57 Freq: Status: Active Protocol: Document 11/30/23 09:46 NM (Rec: 11/30/23 10:32 NM [id number]) Therapeutic Exercises Supine Exercises hamstring stretch Supine Exercise Name hooklying and with LE on mat, seated initiated Side right Reps/Minutes 2x60 Comments Verbal cues for LE positioning , trunk positioning, hooklying to HEP Standing Exercises vietnamese squat Standing Exercise Name trialed in PT Side bilateral Resistance lvl 2 teal tb around knees Equipment Used //bars Reps/Minutes 1x5, 2x10 Comments pain free, increased squat depth and glute involvement calf stretch Standing Exercise Name 1. gastroc, 2. soleus Side right Equipment Used staggered stance at wall Reps/Minutes 1x60 ea Comments reports good stretch, no pain step up/back Standing Exercise Name 1. 4 fwd step up, 2. eccentric step down 4 Side right Equipment Used no hand support Reps/Minutes 1. 2x10, 2. 1x8 (trialed 4 stairs 1 rep pnfr, 6 stairs 2 /10) Comments cued to prevent valgus at knee squat Side bilateral Equipment Used tap to mesh chair Reps/Minutes 2x10 Comments Monitored for pain, reports clicking, pain free until end last set 3/10 Manual Therapy Treatment Soft Tissue Mobilization R thigh Body Location posterior knee, HS, calf Mobilization Type Cross-Friction,Instrument Assisted,Oscillations,Rolling Intensity/Depth Moderate Body Position Prone Comments No tenderness at posterior knee with palpation, but just pt reports with exercise. Hamstring and calf tightness, soft tissue mobilization performed prior to stretching and strengthening. Reports decrease tightness with STM and stretching Self-Care/Home Management Treatment Education Patient Education Joint Protection,Pain Management Other Education Education on use of ice after exercise/HEP/activity then again later in day to decrease swelling, improve pain management. PT-OP-R Modalities Start: 11/04/23 17:57 Freq: Status: Active Protocol: Document 11/19/23 09:52 NM (Rec: 11/19/23 10:34 NM [id number]) Hot Pack/Cold Pack Treatment Cold Pack Location R ant/post knee Patient Position Sitting Comments Sitting with leg elevated. Pt wearing pants, unable to assess skin before/after. Towel between pt pants and cold pack. Pt sitting with collier within reach, 5 minutes. Tolerated well. PT-OP-T Assessment and Plan Start: 11/04/23 17:57 Freq: Status: Active Protocol: Document 11/30/23 09:46 NM (Rec: 11/30/23 10:32 NM [id number]) Physical Therapy Assessment Goals Five Impairment HEP Impairment no daily HEP/exercise program Short Term Goal (STG) Pt will report compliance with HEP 2-3x/wk in order to maximize gains made during PT sessions and demonstrate improved activity tolerance. STG Duration 3 weeks MET Halfway Goal (LTG) Pt will report compliance with HEP 2-3x/wk and/or establish walking program 2-3x/wk for maintenance after PT and demonstrate improved activity tolerance. LTG Duration 6 weeks Four Impairment sleep Impairment pain with position during sleep Banquet Attendant Goal (LTG) Pt will report no R knee pain when changing sleep positions in order to demonstrate improved pain management and sleeping posture 11/30/23: Pt reports that when sleeping with pillow, she has no knee pain LTG Duration 6 weeks MET Three Impairment function Impairment pain with stairs Short Term Goal (STG) Pt will be able to perform at least 10 eccentric step downs with R knee pain <4/10 and without compensation in order to demonstrate improved knee stability and control during stairs 11/30/23: 10 eccentric step downs with 4/10 pain STG Duration 3 weeks PROGRESSING Halfway Goal (LTG) Pt will be able to perform at least 12 stairs with or without a hand rail with R knee pain <4/10 and without compensation in order to demonstrate improved knee stability and control during stairs. LTG Duration 6 weeks Two Impairment function Impairment 10 bilateral squats with pain, compensation Short Term Goal (STG) Pt will be able to perform at least 10 bilateral squats above 90 deg without compensation and pain <4/10 in order demonstrate improved hip and knee strength for ADLs , stairs 11/30/23: 3/10 at end of set to chair, 2x10, equal/bilateral, no compensation STG Duration 3 weeks MET Halfway Goal (LTG) Pt will be able to perform at least 15 bilateral squats above 90 deg without compensation and pain <4/10 in order demonstrate improved hip and knee strength for ADLs , stairs LTG Duration 6 weeks One Impairment strength Impairment R knee flex/ext strength 4-/5 MMT Short Term Goal (STG) Pt will improve R knee flex/ ext MMT to at least 4/5 in order to demonstrate increased knee strength for ADLs, gait 11/30/23: 4/5 for both, no pain STG Duration 3 weeks MET Banquet Attendant Goal (LTG) Pt will improve R knee flex/ ext MMT to at least 4+/5 in order to demonstrate increased knee strength for ADLs, gait LTG Duration 6 weeks Assessment Summary Assessment Pt is progressing toward goals and has met several STGs; pt reports improvement in symptoms during sleeping. She continues to have medial knee pain with squats and step ups. During treatment, pt had pain with repeated eccentric step downs from 4 but none during 4 stairs. Has tendency for knee valgus during step down and contralateral hip drop. Pt cued for increased glute activation with hip hinge to limit quad dominance, patellofemoral pain. Trialed vietnamese squats, pt is pain free and demos increased depth and no compensations. Manual treatment performed to decrease restrictions of R hamstring and calf, followed by stretching to further decrease pain symptoms. Educated on increasing frequency of ice as pt normally does not have pain with HEP but several hours later is achy. Asked for further auth. PT and pt discussed pt's progress, recommending continue with PT at this time due to progress before referral back to PCP if symptoms do not change; pt verbalizes agreement. Pt would benefit from skilled PT for R knee/hip strengthening, improved mechanics with stairs /gait, and pain management. Physical Therapy Plan Frequency and Duration Frequency of Treatment 2x/Week Duration of treatment (weeks) 6 Plan of Care Start Date 11/05/23 Plan of Care End Date 12/25/23 Therapeutic Interventions Therapeutic Interventions Aquatic Therapy,Balance Training,Coordination Training ,Gait Training,Home Exercise Program,Joint Mobilizations, Manual Therapy,Neuromuscular Re-education,Orthotic/ Prosthetic Management,Patient/ Caregiver Education,Self-Care/ Home Management,Sensory Integration,Soft Tissue Mobilization,Taping, Therapeutic Activities, Therapeutic Exercises Modalities Biofeedback,Cold Pack/Ice Massage,Electric Stimulation, Hot Packs,Ultrasound, Vasopneumatic Devices Next Visit Focus/Plan Next Note Type Treatment Note Next Visit Plan Review: 6 step up, trial touch down, eccentric knee 4, vietnamese squat, leg press, squat retrain (lower depth), side steps, hip abductors and VMO. Continue with glute med/ max strengthening. LAQ cables
--- NOTE | 2023-12-03 14:19 | PT.OTN ---
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 She reports that her knee feels like it wants to pop. She thinks that it occurred when her large dog ran into her leg from outside. Reports no falls, twists, or other injuries. No previous injuries or surgeries. Her R knee pain wakes her up with positional changes; pain also with squatting, walking or standing during her classes (1.5 hrs), descending stairs, pivoting/ turning. She reports that it doesn't prevent her from ADLs, but is aggravating. She has been squatting ea day, which can cause pain. She walks a few times/wk occasionally, but otherwise not active. Pt states that her R knee feels like it could give out and is loose but hasn't had any instances of her knee buckling . Pt's knee aches with sitting ; she also reports that occasionally she gets locking, clicking, or feels stuck. Prior Treatments and Tests No imaging performed (ordered PT first), no previous treatments Current Functional Impairments (Reported) Functional Limitations- ADL's pain with sleeping position Functional Limitations- Mobility/Gait 1.5 hrs stand/walk; difficulty with declines/stairs due to pain Functional Limitations- Work/School 1.5 hr stand/walk before requires seated rest break due to pain PT-OP-C Subjective Start: 11/04/23 17:57 Freq: Status: Active Protocol: Document 12/03/23 08:09 AB (Rec: 12/03/23 10:32 AB [id number]) OP-PT Subjective Patient Comments Patient Comments Patient reports she noticed pain when turning in bed. Reports a little pain with turning in bed start of session medial right knee PT-OP-D Balance Start: 11/04/23 17:57 Freq: Status: Active Protocol: Document 11/05/23 09:02 NM (Rec: 11/05/23 09:48 NM [id number]) Balance Tests Romberg Romberg 30 seconds Single Limb Standing Single Limb- Right 15 seconds, increased sway/ instability Single Limb- Left 15 seconds Tandem Tandem Standing 10 seconds PT-OP-E Functional Tests Start: 11/04/23 17:57 Freq: Status: Active Protocol: Document 11/05/23 09:02 NM (Rec: 11/05/23 09:48 NM [id number]) Functional Tests Squat Test Score 10 Comments knee valgus, decreased depth; rotates L, painful PT-OP-F Manual Assessment Start: 11/04/23 17:57 Freq: Status: Active Protocol: Document 11/05/23 09:02 NM (Rec: 11/05/23 09:48 NM [id number]) Manual Assessments Soft Tissue Assessment Soft Tissue Mobility Assessment Tenderness and tightness in popliteal fossa. Slight hamstring tightness, but not formally measured Joint Mobility Assessment Joint Mobility Assessment No clicking or locking with instability tests. Pain with MCL test, but no increased mobility. R knee joint compression is painful, worse with rotation. Decreased patellar mobility globally. Pain with overpressure R knee extension PT-OP-G Mobility & Gait Start: 11/04/23 17:57 Freq: Status: Active Protocol: Document 11/05/23 09:02 NM (Rec: 11/05/23 09:48 NM [id number]) OP Gait Assessment Gait Gait Assistance Required: Independent Distance (Feet) 200 Assistive Devices Assistive Device None Gait Deviations General Gait Pattern Antalgic Factors Limiting Gait Function Factors Limiting Gait Function Decreased Activity Tolerance Comments Gait Comments No TKE R knee in stance, decreased stance time. PT-OP-H Neuro Start: 11/04/23 17:57 Freq: Status: Active Protocol: Document 11/05/23 09:02 NM (Rec: 11/05/23 09:48 NM [id number]) Sensation Evaluation Comments Summary Comments BLE intact to light touch sensation equally PT-OP-J Posture/Palpation/Skin Start: 11/04/23 17:57 Freq: Status: Active Protocol: Document 11/05/23 09:02 NM (Rec: 11/05/23 09:48 NM [id number]) Posture Evaluation Position Standing Head/C-Spine Posture Forward Head T-Spine Posture Increased Kyphosis Weight Distribution Decreased Wt.Bear on (R) Hip Posture (L) Externally Rotated,(R) Externally Rotated Knee Posture (L) Genu Valgus,(R) Genu Valgus Patellar Posture (L) Superior,(R) Superior Ankle/Foot Posture (L) Pronated,(R) Pronated Foot Arch (L) Medium Arch,(R) Medium Arch Comments Posture Comments Tendency for hyperextension L knee Palpation Assessment Location R knee Palpation Location medial joint line, anterior knee, patella, MCL, pes anserine Palpation Findings Soft Tissue Tightness, Tenderness Palpation Details Tenderness along medial joint line, MCL distally. No increased MCL thickness. No tenderness laterally on knee or at patellar tendon. No tenderness at pes anserine insertion PT-OP-K Range of Motion Start: 11/04/23 17:57 Freq: Status: Active Protocol: Document 11/30/23 09:46 NM (Rec: 11/30/23 10:32 NM [id number]) Knee Goniometric Range of Motion Knee Right Flexion Active (degrees) 125 Flexion Passive (degrees) 130 Extension Active (degrees) 2 Extension Passive (degrees) 0 Comments Pain with overpressure hyperextension 11/30/23: 130 deg flex, 0 deg ext w.o pain in hyperextension PT-OP-L Special Tests Start: 11/04/23 17:57 Freq: Status: Active Protocol: Document 11/05/23 09:02 NM (Rec: 11/05/23 09:48 NM [id number]) Special Tests Knee Special Tests Valgus Test Results - Comments 0, 30 deg. Painful but no increased mobility compared to LLE Varus Test Results - Comments 0, 30 deg Patellar Grind Test Test Results + Posterior Sag Test Results - Posterior Draw Test Results - Anterior Draw Test Results - Parul Test Test Results + Comments Painful on medial joint line, no clicking/popping/locking Elsa's Test Results - Thessaly Test Results + Comments 5 deg and 20 deg; reproduces familiar pain Apley's Compression Test Results + Comments Catching; reproduces familiar pain PT-OP-M Strength Start: 11/04/23 17:57 Freq: Status: Active Protocol: Document 11/30/23 09:46 NM (Rec: 11/30/23 10:32 NM [id number]) Knee Strength Knee Manual Muscle Testing Left Flexion (S2) 4 Good Extension (L3) 4 Good Right Flexion (S2) 4- Good- Extension (L3) 4- Good- Comments No pain with resisted motions 11/30/23: 4/5, no pain PT-OP-Q Treatments Start: 11/04/23 17:57 Freq: Status: Active Protocol: Document 12/03/23 08:09 AB (Rec: 12/03/23 10:32 AB [id number]) Therapeutic Exercises Supine Exercises hamstring stretch Supine Exercise Name hooklying and with LE on mat, seated initiated Side right Reps/Minutes 2x60 Comments Verbal cues for LE positioning , trunk positioning, hooklying to HEP straight leg raise Supine Exercise Name with quad set Side right Resistance AROM with brief hold Reps/Minutes 2x10 Comments cued TKE entire ROM, no ext lag; fatiguing Sitting Exercises seated hip abd with band Equipment Used light green band Reps/Minutes one minute X 2 Standing Exercises 4 inch fwd step down Standing Exercise Name bilateral UE use Side right Reps/Minutes 10 Comments Verbal cues for buttocks band and decrease pelvic drop hebrew squat Standing Exercise Name trialed in PT Side bilateral Resistance lvl 2 teal and lv3 light green tb behind knees Equipment Used //bars Reps/Minutes 2x10 Comments pain free, increased squat depth and glute involvement calf stretch Standing Exercise Name on step soleus and gastrc Side bilateral Reps/Minutes 60 sec X 2 each Comments monit for pain single leg lift to mat Standing Exercise Name to chair seat Side right Reps/Minutes X10 Comments verbal and visual cues Manual Therapy Treatment Soft Tissue Mobilization R thigh Body Location posterior knee, HS, calf Mobilization Type Cross-Friction,Instrument Assisted,Oscillations,Rolling Intensity/Depth Moderate Body Position Prone Comments No tenderness at posterior knee with palpation, but just pt reports with exercise. Hamstring and calf tightness, soft tissue mobilization performed prior to stretching and strengthening. Reports decrease tightness with STM and stretching Self-Care/Home Management Treatment Activities Self-Care/Home Management Activities 1 PT-OP-R Modalities Start: 11/04/23 17:57 Freq: Status: Active Protocol: Document 11/19/23 09:52 NM (Rec: 11/19/23 10:34 NM [id number]) Hot Pack/Cold Pack Treatment Cold Pack Location R ant/post knee Patient Position Sitting Comments Sitting with leg elevated. Pt wearing pants, unable to assess skin before/after. Towel between pt pants and cold pack. Pt sitting with collier within reach, 5 minutes. Tolerated well. PT-OP-T Assessment and Plan Start: 11/04/23 17:57 Freq: Status: Active Protocol: Document 12/03/23 08:09 AB (Rec: 12/03/23 10:32 AB [id number]) Physical Therapy Assessment Goals Five Impairment HEP Impairment no daily HEP/exercise program Short Term Goal (STG) Pt will report compliance with HEP 2-3x/wk in order to maximize gains made during PT sessions and demonstrate improved activity tolerance. STG Duration 3 weeks MET Boiler Fireman Goal (LTG) Pt will report compliance with HEP 2-3x/wk and/or establish walking program 2-3x/wk for maintenance after PT and demonstrate improved activity tolerance. LTG Duration 6 weeks Four Impairment sleep Impairment pain with position during sleep Boiler Fireman Goal (LTG) Pt will report no R knee pain when changing sleep positions in order to demonstrate improved pain management and sleeping posture 11/30/23: Pt reports that when sleeping with pillow, she has no knee pain LTG Duration 6 weeks MET Three Impairment function Impairment pain with stairs Short Term Goal (STG) Pt will be able to perform at least 10 eccentric step downs with R knee pain <4/10 and without compensation in order to demonstrate improved knee stability and control during stairs 11/30/23: 10 eccentric step downs with 4/10 pain STG Duration 3 weeks PROGRESSING Fdc Goal (LTG) Pt will be able to perform at least 12 stairs with or without a hand rail with R knee pain <4/10 and without compensation in order to demonstrate improved knee stability and control during stairs. LTG Duration 6 weeks Two Impairment function Impairment 10 bilateral squats with pain, compensation Short Term Goal (STG) Pt will be able to perform at least 10 bilateral squats above 90 deg without compensation and pain <4/10 in order demonstrate improved hip and knee strength for ADLs , stairs 11/30/23: 3/10 at end of set to chair, 2x10, equal/bilateral, no compensation STG Duration 3 weeks MET Fdc Goal (LTG) Pt will be able to perform at least 15 bilateral squats above 90 deg without compensation and pain <4/10 in order demonstrate improved hip and knee strength for ADLs , stairs LTG Duration 6 weeks One Impairment strength Impairment R knee flex/ext strength 4-/5 MMT Short Term Goal (STG) Pt will improve R knee flex/ ext MMT to at least 4/5 in order to demonstrate increased knee strength for ADLs, gait 11/30/23: 4/5 for both, no pain STG Duration 3 weeks MET Boiler Fireman Goal (LTG) Pt will improve R knee flex/ ext MMT to at least 4+/5 in order to demonstrate increased knee strength for ADLs, gait LTG Duration 6 weeks Assessment Summary Assessment patient reports having no pain with rolling from sidelying post manual therapy, hamtring stretch and quad sets, patient rates pain 1-2/10 right medial knee end of session Physical Therapy Plan Frequency and Duration Frequency of Treatment 2x/Week Duration of treatment (weeks) 6 Plan of Care Start Date 11/05/23 Plan of Care End Date 12/25/23 Next Visit Focus/Plan Next Note Type Treatment Note Next Visit Plan Review: 6 step up, trial touch down, eccentric knee 4/ focus on avoiding pelvic drop, hebrew squat, leg press, squat retrain (lower depth), side steps, hip abductors and VMO. Continue with/focus on next session glute med/max strengthening. LAQ cables
--- NOTE | 2023-12-15 15:35 | PT.OTN ---
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 She reports that her knee feels like it wants to pop. She thinks that it occurred when her large dog ran into her leg from outside. Reports no falls, twists, or other injuries. No previous injuries or surgeries. Her R knee pain wakes her up with positional changes; pain also with squatting, walking or standing during her classes (1.5 hrs), descending stairs, pivoting/ turning. She reports that it doesn't prevent her from ADLs, but is aggravating. She has been squatting ea day, which can cause pain. She walks a few times/wk occasionally, but otherwise not active. Pt states that her R knee feels like it could give out and is loose but hasn't had any instances of her knee buckling . Pt's knee aches with sitting ; she also reports that occasionally she gets locking, clicking, or feels stuck. Prior Treatments and Tests No imaging performed (ordered PT first), no previous treatments Current Functional Impairments (Reported) Functional Limitations- ADL's pain with sleeping position Functional Limitations- Mobility/Gait 1.5 hrs stand/walk; difficulty with declines/stairs due to pain Functional Limitations- Work/School 1.5 hr stand/walk before requires seated rest break due to pain PT-OP-C Subjective Start: 11/04/23 17:57 Freq: Status: Active Protocol: Document 12/15/23 13:16 SW (Rec: 12/15/23 14:34 SW [id number]) OP-PT Subjective Patient Comments Patient Comments Pt reports injured knee day after last session, mis stepped, valgus motion, medial knee pain. Had last week off from PT did not do much as far as exercises to allow to heal . Pt reports friend did acupuncture on knee and pt feels back to or close to where she wwas before. PT-OP-D Balance Start: 11/04/23 17:57 Freq: Status: Active Protocol: Document 11/05/23 09:02 NM (Rec: 11/05/23 09:48 NM [id number]) Balance Tests Romberg Romberg 30 seconds Single Limb Standing Single Limb- Right 15 seconds, increased sway/ instability Single Limb- Left 15 seconds Tandem Tandem Standing 10 seconds PT-OP-E Functional Tests Start: 11/04/23 17:57 Freq: Status: Active Protocol: Document 11/05/23 09:02 NM (Rec: 11/05/23 09:48 NM [id number]) Functional Tests Squat Test Score 10 Comments knee valgus, decreased depth; rotates L, painful PT-OP-F Manual Assessment Start: 11/04/23 17:57 Freq: Status: Active Protocol: Document 11/05/23 09:02 NM (Rec: 11/05/23 09:48 NM [id number]) Manual Assessments Soft Tissue Assessment Soft Tissue Mobility Assessment Tenderness and tightness in popliteal fossa. Slight hamstring tightness, but not formally measured Joint Mobility Assessment Joint Mobility Assessment No clicking or locking with instability tests. Pain with MCL test, but no increased mobility. R knee joint compression is painful, worse with rotation. Decreased patellar mobility globally. Pain with overpressure R knee extension PT-OP-G Mobility & Gait Start: 11/04/23 17:57 Freq: Status: Active Protocol: Document 11/05/23 09:02 NM (Rec: 11/05/23 09:48 NM [id number]) OP Gait Assessment Gait Gait Assistance Required: Independent Distance (Feet) 200 Assistive Devices Assistive Device None Gait Deviations General Gait Pattern Antalgic Factors Limiting Gait Function Factors Limiting Gait Function Decreased Activity Tolerance Comments Gait Comments No TKE R knee in stance, decreased stance time. PT-OP-H Neuro Start: 11/04/23 17:57 Freq: Status: Active Protocol: Document 11/05/23 09:02 NM (Rec: 11/05/23 09:48 NM [id number]) Sensation Evaluation Comments Summary Comments BLE intact to light touch sensation equally PT-OP-J Posture/Palpation/Skin Start: 11/04/23 17:57 Freq: Status: Active Protocol: Document 11/05/23 09:02 NM (Rec: 11/05/23 09:48 NM [id number]) Posture Evaluation Position Standing Head/C-Spine Posture Forward Head T-Spine Posture Increased Kyphosis Weight Distribution Decreased Wt.Bear on (R) Hip Posture (L) Externally Rotated,(R) Externally Rotated Knee Posture (L) Genu Valgus,(R) Genu Valgus Patellar Posture (L) Superior,(R) Superior Ankle/Foot Posture (L) Pronated,(R) Pronated Foot Arch (L) Medium Arch,(R) Medium Arch Comments Posture Comments Tendency for hyperextension L knee Palpation Assessment Location R knee Palpation Location medial joint line, anterior knee, patella, MCL, pes anserine Palpation Findings Soft Tissue Tightness, Tenderness Palpation Details Tenderness along medial joint line, MCL distally. No increased MCL thickness. No tenderness laterally on knee or at patellar tendon. No tenderness at pes anserine insertion PT-OP-K Range of Motion Start: 11/04/23 17:57 Freq: Status: Active Protocol: Document 11/30/23 09:46 NM (Rec: 11/30/23 10:32 NM [id number]) Knee Goniometric Range of Motion Knee Right Flexion Active (degrees) 125 Flexion Passive (degrees) 130 Extension Active (degrees) 2 Extension Passive (degrees) 0 Comments Pain with overpressure hyperextension 11/30/23: 130 deg flex, 0 deg ext w.o pain in hyperextension PT-OP-L Special Tests Start: 11/04/23 17:57 Freq: Status: Active Protocol: Document 11/05/23 09:02 NM (Rec: 11/05/23 09:48 NM [id number]) Special Tests Knee Special Tests Valgus Test Results - Comments 0, 30 deg. Painful but no increased mobility compared to LLE Varus Test Results - Comments 0, 30 deg Patellar Grind Test Test Results + Posterior Sag Test Results - Posterior Draw Test Results - Anterior Draw Test Results - Parul Test Test Results + Comments Painful on medial joint line, no clicking/popping/locking Elsa's Test Results - Thessaly Test Results + Comments 5 deg and 20 deg; reproduces familiar pain Apley's Compression Test Results + Comments Catching; reproduces familiar pain PT-OP-M Strength Start: 11/04/23 17:57 Freq: Status: Active Protocol: Document 11/30/23 09:46 NM (Rec: 11/30/23 10:32 NM [id number]) Knee Strength Knee Manual Muscle Testing Left Flexion (S2) 4 Good Extension (L3) 4 Good Right Flexion (S2) 4- Good- Extension (L3) 4- Good- Comments No pain with resisted motions 11/30/23: 4/5, no pain PT-OP-Q Treatments Start: 11/04/23 17:57 Freq: Status: Active Protocol: Document 12/15/23 13:16 SW (Rec: 12/15/23 14:34 SW [id number]) Therapeutic Exercises Supine Exercises straight leg raise Supine Exercise Name with quad set Side right Resistance AROM with brief hold Reps/Minutes 2x10> VMO bias x 10 Comments cued TKE entire ROM, no ext lag; fatiguing pain free Sitting Exercises HS curl Sitting Exercise Name HS curl Side right Resistance level 2 Equipment Used 3 x 10 Comments denies pain, fatigue HS stretch Sitting Exercise Name HS Stretch Reps/Minutes 2x30 Comments cues for breathwork, tissue relaxation, toe point for less calf LAQ Sitting Exercise Name LAQ Side right Equipment Used Level 2 Reps/Minutes 3x10 Comments reports no knee pain; fatigueing Standing Exercises Hip Ext Standing Exercise Name Not this session sami squat Side bilateral Resistance lvl 2 teal and lv3 light green tb behind knees Equipment Used //bars Reps/Minutes 2x10 Comments pain free, increased squat depth and glute involvement calf stretch Standing Exercise Name on step soleus and gastrc Side bilateral Reps/Minutes 60 sec X 2 each Comments monit for pain side steps Standing Exercise Name 1. side steps Side bilateral Resistance lvl 3 tb around ankles side step Equipment Used squat form Reps/Minutes 2x20 ft ea Comments no knee pain Manual Therapy Treatment Soft Tissue Mobilization right quad Body Location right quad distally and medial right knee areas of increased density Mobilization Type Cross-Friction,Rolling Intensity/Depth Moderate Body Position Hooklying Comments Andreas for pain R thigh Body Location posterior knee, HS, calf Mobilization Type Cross-Friction,Instrument Assisted,Oscillations,Rolling Intensity/Depth Moderate Body Position Prone Comments No tenderness at posterior knee with palpation, but just pt reports with exercise. Hamstring and calf tightness, soft tissue mobilization performed prior to stretching and strengthening. Reports decrease tightness with STM and stretching PT-OP-R Modalities Start: 11/04/23 17:57 Freq: Status: Active Protocol: Document 11/19/23 09:52 NM (Rec: 11/19/23 10:34 NM [id number]) Hot Pack/Cold Pack Treatment Cold Pack Location R ant/post knee Patient Position Sitting Comments Sitting with leg elevated. Pt wearing pants, unable to assess skin before/after. Towel between pt pants and cold pack. Pt sitting with collier within reach, 5 minutes. Tolerated well. PT-OP-T Assessment and Plan Start: 11/04/23 17:57 Freq: Status: Active Protocol: Document 12/15/23 13:16 SW (Rec: 12/15/23 14:34 SW [id number]) Physical Therapy Assessment Goals Five Impairment HEP Impairment no daily HEP/exercise program Short Term Goal (STG) Pt will report compliance with HEP 2-3x/wk in order to maximize gains made during PT sessions and demonstrate improved activity tolerance. STG Duration 3 weeks MET [facility] Goal (LTG) Pt will report compliance with HEP 2-3x/wk and/or establish walking program 2-3x/wk for maintenance after PT and demonstrate improved activity tolerance. LTG Duration 6 weeks Four Impairment sleep Impairment pain with position during sleep [facility] Goal (LTG) Pt will report no R knee pain when changing sleep positions in order to demonstrate improved pain management and sleeping posture 11/30/23: Pt reports that when sleeping with pillow, she has no knee pain LTG Duration 6 weeks MET Three Impairment function Impairment pain with stairs Short Term Goal (STG) Pt will be able to perform at least 10 eccentric step downs with R knee pain <4/10 and without compensation in order to demonstrate improved knee stability and control during stairs 11/30/23: 10 eccentric step downs with 4/10 pain STG Duration 3 weeks PROGRESSING Auto Painter Helper Goal (LTG) Pt will be able to perform at least 12 stairs with or without a hand rail with R knee pain <4/10 and without compensation in order to demonstrate improved knee stability and control during stairs. LTG Duration 6 weeks Two Impairment function Impairment 10 bilateral squats with pain, compensation Short Term Goal (STG) Pt will be able to perform at least 10 bilateral squats above 90 deg without compensation and pain <4/10 in order demonstrate improved hip and knee strength for ADLs , stairs 11/30/23: 3/10 at end of set to chair, 2x10, equal/bilateral, no compensation STG Duration 3 weeks MET [facility] Goal (LTG) Pt will be able to perform at least 15 bilateral squats above 90 deg without compensation and pain <4/10 in order demonstrate improved hip and knee strength for ADLs , stairs LTG Duration 6 weeks One Impairment strength Impairment R knee flex/ext strength 4-/5 MMT Short Term Goal (STG) Pt will improve R knee flex/ ext MMT to at least 4/5 in order to demonstrate increased knee strength for ADLs, gait 11/30/23: 4/5 for both, no pain STG Duration 3 weeks MET [facility] Goal (LTG) Pt will improve R knee flex/ ext MMT to at least 4+/5 in order to demonstrate increased knee strength for ADLs, gait LTG Duration 6 weeks Assessment Summary Assessment Pt set back with a mis step day after last PT session, limited carryover of HEP between sessions for recovery, pt feels almost back to where last left off in PT. Initiated seated LAQ and HS curl with resistance this session to progress toward pt Knee strength goal, pt tolerated well, denies pain, Issued HEP HO. Pt reports feeling fatigue in LE at EOS, denies pain. Physical Therapy Plan Frequency and Duration Frequency of Treatment 2x/Week Duration of treatment (weeks) 6 Plan of Care Start Date 11/05/23 Plan of Care End Date 12/25/23 Therapeutic Interventions Therapeutic Interventions Aquatic Therapy,Balance Training,Coordination Training ,Gait Training,Home Exercise Program,Joint Mobilizations, Manual Therapy,Neuromuscular Re-education,Orthotic/ Prosthetic Management,Patient/ Caregiver Education,Self-Care/ Home Management,Sensory Integration,Soft Tissue Mobilization,Taping, Therapeutic Activities, Therapeutic Exercises Modalities Biofeedback,Cold Pack/Ice Massage,Electric Stimulation, Hot Packs,Ultrasound, Vasopneumatic Devices Next Visit Focus/Plan Next Note Type Treatment Note Next Visit Plan Review: 6 step up, trial touch down, eccentric knee 4/ focus on avoiding pelvic drop, sami squat, leg press, squat retrain (lower depth), side steps, hip abductors and VMO. Continue with/focus on next session glute med/max strengthening. LAQ cables
--- NOTE | 2023-12-17 15:46 | PT.OTN ---
Current Diagnoses Other chronic pain (12/17/23) Pain in right knee (12/17/23) Other lack of coordination (12/17/23) Weakness (12/17/23) Physical Therapy Treatment Note PT-OP-A Visit Information Start: 11/04/23 17:57 Freq: Status: Active Protocol: Document 12/17/23 13:27 SW (Rec: 12/17/23 14:34 SW [id number]) Out-Patient Physical Therapy Visit Information Visit Information Visit Type Treatment Note Visit Start Time 13:45 Visit Stop Time 14:25 Visit Number 9 Number of MILK SAMPLER Visits 3 PT-OP-B Current Condition Start: 11/04/23 17:57 Freq: Status: Active Protocol: Document 11/05/23 09:02 NM (Rec: 11/05/23 09:48 NM [id number]) Current Condition History of Current Condition Onset Date April 2023 Current Complaints pain, catching/locking, warm History of Current Condition Pt presents with R knee pain, beginning at least 6 months ago. She reports that her knee feels like it wants to pop. She thinks that it occurred when her large dog ran into her leg from outside. Reports no falls, twists, or other injuries. No previous injuries or surgeries. Her R knee pain wakes her up with positional changes; pain also with squatting, walking or standing during her classes (1.5 hrs), descending stairs, pivoting/ turning. She reports that it doesn't prevent her from ADLs, but is aggravating. She has been squatting ea day, which can cause pain. She walks a few times/wk occasionally, but otherwise not active. Pt states that her R knee feels like it could give out and is loose but hasn't had any instances of her knee buckling . Pt's knee aches with sitting ; she also reports that occasionally she gets locking, clicking, or feels stuck. Prior Treatments and Tests No imaging performed (ordered PT first), no previous treatments Current Functional Impairments (Reported) Functional Limitations- ADL's pain with sleeping position Functional Limitations- Mobility/Gait 1.5 hrs stand/walk; difficulty with declines/stairs due to pain Functional Limitations- Work/School 1.5 hr stand/walk before requires seated rest break due to pain PT-OP-C Subjective Start: 11/04/23 17:57 Freq: Status: Active Protocol: Document 12/17/23 13:27 SW (Rec: 12/17/23 14:34 SW [id number]) OP-PT Subjective Patient Comments Patient Comments Pt reports hip discomfort in R hip flexor with brianna movements since post last session, attributes to compensations with seated knee ext. PT-OP-D Balance Start: 11/04/23 17:57 Freq: Status: Active Protocol: Document 11/05/23 09:02 NM (Rec: 11/05/23 09:48 NM [id number]) Balance Tests Romberg Romberg 30 seconds Single Limb Standing Single Limb- Right 15 seconds, increased sway/ instability Single Limb- Left 15 seconds Tandem Tandem Standing 10 seconds PT-OP-E Functional Tests Start: 11/04/23 17:57 Freq: Status: Active Protocol: Document 11/05/23 09:02 NM (Rec: 11/05/23 09:48 NM [id number]) Functional Tests Squat Test Score 10 Comments knee valgus, decreased depth; rotates L, painful PT-OP-F Manual Assessment Start: 11/04/23 17:57 Freq: Status: Active Protocol: Document 11/05/23 09:02 NM (Rec: 11/05/23 09:48 NM [id number]) Manual Assessments Soft Tissue Assessment Soft Tissue Mobility Assessment Tenderness and tightness in popliteal fossa. Slight hamstring tightness, but not formally measured Joint Mobility Assessment Joint Mobility Assessment No clicking or locking with instability tests. Pain with MCL test, but no increased mobility. R knee joint compression is painful, worse with rotation. Decreased patellar mobility globally. Pain with overpressure R knee extension PT-OP-G Mobility & Gait Start: 11/04/23 17:57 Freq: Status: Active Protocol: Document 11/05/23 09:02 NM (Rec: 11/05/23 09:48 NM [id number]) OP Gait Assessment Gait Gait Assistance Required: Independent Distance (Feet) 200 Assistive Devices Assistive Device None Gait Deviations General Gait Pattern Antalgic Factors Limiting Gait Function Factors Limiting Gait Function Decreased Activity Tolerance Comments Gait Comments No TKE R knee in stance, decreased stance time. PT-OP-H Neuro Start: 11/04/23 17:57 Freq: Status: Active Protocol: Document 11/05/23 09:02 NM (Rec: 11/05/23 09:48 NM [id number]) Sensation Evaluation Comments Summary Comments BLE intact to light touch sensation equally PT-OP-J Posture/Palpation/Skin Start: 11/04/23 17:57 Freq: Status: Active Protocol: Document 11/05/23 09:02 NM (Rec: 11/05/23 09:48 NM [id number]) Posture Evaluation Position Standing Head/C-Spine Posture Forward Head T-Spine Posture Increased Kyphosis Weight Distribution Decreased Wt.Bear on (R) Hip Posture (L) Externally Rotated,(R) Externally Rotated Knee Posture (L) Genu Valgus,(R) Genu Valgus Patellar Posture (L) Superior,(R) Superior Ankle/Foot Posture (L) Pronated,(R) Pronated Foot Arch (L) Medium Arch,(R) Medium Arch Comments Posture Comments Tendency for hyperextension L knee Palpation Assessment Location R knee Palpation Location medial joint line, anterior knee, patella, MCL, pes anserine Palpation Findings Soft Tissue Tightness, Tenderness Palpation Details Tenderness along medial joint line, MCL distally. No increased MCL thickness. No tenderness laterally on knee or at patellar tendon. No tenderness at pes anserine insertion PT-OP-K Range of Motion Start: 11/04/23 17:57 Freq: Status: Active Protocol: Document 11/30/23 09:46 NM (Rec: 11/30/23 10:32 NM [id number]) Knee Goniometric Range of Motion Knee Right Flexion Active (degrees) 125 Flexion Passive (degrees) 130 Extension Active (degrees) 2 Extension Passive (degrees) 0 Comments Pain with overpressure hyperextension 11/30/23: 130 deg flex, 0 deg ext w.o pain in hyperextension PT-OP-L Special Tests Start: 11/04/23 17:57 Freq: Status: Active Protocol: Document 11/05/23 09:02 NM (Rec: 11/05/23 09:48 NM [id number]) Special Tests Knee Special Tests Valgus Test Results - Comments 0, 30 deg. Painful but no increased mobility compared to LLE Varus Test Results - Comments 0, 30 deg Patellar Grind Test Test Results + Posterior Sag Test Results - Posterior Draw Test Results - Anterior Draw Test Results - Parul Test Test Results + Comments Painful on medial joint line, no clicking/popping/locking Elsa's Test Results - Thessaly Test Results + Comments 5 deg and 20 deg; reproduces familiar pain Apley's Compression Test Results + Comments Catching; reproduces familiar pain PT-OP-M Strength Start: 11/04/23 17:57 Freq: Status: Active Protocol: Document 11/30/23 09:46 NM (Rec: 11/30/23 10:32 NM [id number]) Knee Strength Knee Manual Muscle Testing Left Flexion (S2) 4 Good Extension (L3) 4 Good Right Flexion (S2) 4- Good- Extension (L3) 4- Good- Comments No pain with resisted motions 11/30/23: 4/5, no pain PT-OP-Q Treatments Start: 11/04/23 17:57 Freq: Status: Active Protocol: Document 12/17/23 13:27 SW (Rec: 12/17/23 14:34 SW [id number]) Gym Equipment Cable Column (Body Solid) Knee Flex Details Knee flex Resistance 30# Reps/Time 3x10 Knee ext Details Knee ext Resistance 20# Reps/Time 3x10 Therapeutic Exercises Standing Exercises Deadlift Standing Exercise Name Deadlift Side bilateral Reps/Minutes x10 Comments hip hinge mechanics, glute strengthening, cues for core stabilization Lateral stepping Standing Exercise Name Lateral Stepping Side bilateral Resistance Green Reps/Minutes 2 x 20 ft Hip Ext Standing Exercise Name Hip Ext Resistance Green band above knee Reps/Minutes 3 x 10 Comments good fatigue [place] squat Side bilateral Resistance lvl 2 teal and lv3 light green tb behind knees Equipment Used //bars Reps/Minutes 2x10 Comments pain free, increased squat depth and glute involvement single leg lift to mat Standing Exercise Name to chair seat Side right Reps/Minutes X10 Comments verbal and visual cues squat Standing Exercise Name Squat Side bilateral Equipment Used tap to mesh chair> @ rail Reps/Minutes 2x10 Comments Monitored for pain, cues for mechanics, alignment and depth pain free PT-OP-R Modalities Start: 11/04/23 17:57 Freq: Status: Active Protocol: Document 11/19/23 09:52 NM (Rec: 11/19/23 10:34 NM [id number]) Hot Pack/Cold Pack Treatment Cold Pack Location R ant/post knee Patient Position Sitting Comments Sitting with leg elevated. Pt wearing pants, unable to assess skin before/after. Towel between pt pants and cold pack. Pt sitting with collier within reach, 5 minutes. Tolerated well. PT-OP-T Assessment and Plan Start: 11/04/23 17:57 Freq: Status: Active Protocol: Document 12/17/23 13:27 (Rec: 12/17/23 14:34 [id number]) Physical Therapy Assessment Goals Five Impairment HEP Impairment no daily HEP/exercise program Short Term Goal (STG) Pt will report compliance with HEP 2-3x/wk in order to maximize gains made during PT sessions and demonstrate improved activity tolerance. STG Duration 3 weeks MET Plywood Layup Line Core Layer Goal (LTG) Pt will report compliance with HEP 2-3x/wk and/or establish walking program 2-3x/wk for maintenance after PT and demonstrate improved activity tolerance. LTG Duration 6 weeks Four Impairment sleep Impairment pain with position during sleep Correction Goal (LTG) Pt will report no R knee pain when changing sleep positions in order to demonstrate improved pain management and sleeping posture 11/30/23: Pt reports that when sleeping with pillow, she has no knee pain LTG Duration 6 weeks MET Three Impairment function Impairment pain with stairs Short Term Goal (STG) Pt will be able to perform at least 10 eccentric step downs with R knee pain <4/10 and without compensation in order to demonstrate improved knee stability and control during stairs 11/30/23: 10 eccentric step downs with 4/10 pain STG Duration 3 weeks PROGRESSING Correction Goal (LTG) Pt will be able to perform at least 12 stairs with or without a hand rail with R knee pain <4/10 and without compensation in order to demonstrate improved knee stability and control during stairs. LTG Duration 6 weeks Two Impairment function Impairment 10 bilateral squats with pain, compensation Short Term Goal (STG) Pt will be able to perform at least 10 bilateral squats above 90 deg without compensation and pain <4/10 in order demonstrate improved hip and knee strength for ADLs , stairs 11/30/23: 3/10 at end of set to chair, 2x10, equal/bilateral, no compensation STG Duration 3 weeks MET Plywood Layup Line Core Layer Goal (LTG) Pt will be able to perform at least 15 bilateral squats above 90 deg without compensation and pain <4/10 in order demonstrate improved hip and knee strength for ADLs , stairs LTG Duration 6 weeks One Impairment strength Impairment R knee flex/ext strength 4-/5 MMT Short Term Goal (STG) Pt will improve R knee flex/ ext MMT to at least 4/5 in order to demonstrate increased knee strength for ADLs, gait 11/30/23: 4/5 for both, no pain STG Duration 3 weeks MET Correction Goal (LTG) Pt will improve R knee flex/ ext MMT to at least 4+/5 in order to demonstrate increased knee strength for ADLs, gait LTG Duration 6 weeks Assessment Summary Assessment Reviewed pt HEP exercises to condense, pt plans to bring in HEP HOs next session to assist with compliance and maximize progress. Inititiated cables for knee strenghening this session, no pain, good tolerance and appropriate amount of fatigue, able to tolerate more weight with knee flex vs ext. Pt minimal onset of knee pain with squats this session, decreased depth and educated pt on correct mechanics, improved with decreased depth and alignment. Physical Therapy Plan Frequency and Duration Frequency of Treatment 2x/Week Duration of treatment (weeks) 6 Plan of Care Start Date 11/05/23 Plan of Care End Date 12/25/23 Therapeutic Interventions Therapeutic Interventions Aquatic Therapy,Balance Training,Coordination Training ,Gait Training,Home Exercise Program,Joint Mobilizations, Manual Therapy,Neuromuscular Re-education,Orthotic/ Prosthetic Management,Patient/ Caregiver Education,Self-Care/ Home Management,Sensory Integration,Soft Tissue Mobilization,Taping, Therapeutic Activities, Therapeutic Exercises Modalities Biofeedback,Cold Pack/Ice Massage,Electric Stimulation, Hot Packs,Ultrasound, Vasopneumatic Devices Next Visit Focus/Plan Next Note Type Treatment Note Next Visit Plan Review: 6 step up, trial touch down, eccentric knee 4/ focus on avoiding pelvic drop, [place] squat, leg press, squat retrain (lower depth), side steps, hip abductors and VMO. Continue with/focus on next session glute med/max strengthening. LAQ cables
--- NOTE | 2023-12-23 14:56 | PT.OTN ---
Current Diagnoses Other chronic pain (12/23/23) Pain in right knee (12/23/23) Other lack of coordination (12/23/23) Weakness (12/23/23) Physical Therapy Treatment Note PT-OP-A Visit Information Start: 11/04/23 17:57 Freq: Status: Active Protocol: Document 12/23/23 13:46 NM (Rec: 12/23/23 14:56 NM [id number]) Out-Patient Physical Therapy Visit Information Visit Information Visit Type Progress Note Visit Start Time 13:47 Visit Stop Time 14:30 Visit Number 10 Evaluation Information Evaluation Date 11/05/23 Precautions Precautions No twisting, limit squat depth PT-OP-B Current Condition Start: 11/04/23 17:57 Freq: Status: Active Protocol: Document 11/05/23 09:02 NM (Rec: 11/05/23 09:48 NM [id number]) Current Condition History of Current Condition Onset Date April 2023 Current Complaints pain, catching/locking, warm History of Current Condition Pt presents with R knee pain, beginning at least 6 months ago. She reports that her knee feels like it wants to pop. She thinks that it occurred when her large dog ran into her leg from outside. Reports no falls, twists, or other injuries. No previous injuries or surgeries. Her R knee pain wakes her up with positional changes; pain also with squatting, walking or standing during her classes (1.5 hrs), descending stairs, pivoting/ turning. She reports that it doesn't prevent her from ADLs, but is aggravating. She has been squatting ea day, which can cause pain. She walks a few times/wk occasionally, but otherwise not active. Pt states that her R knee feels like it could give out and is loose but hasn't had any instances of her knee buckling . Pt's knee aches with sitting ; she also reports that occasionally she gets locking, clicking, or feels stuck. Prior Treatments and Tests No imaging performed (ordered PT first), no previous treatments Current Functional Impairments (Reported) Functional Limitations- ADL's pain with sleeping position Functional Limitations- Mobility/Gait 1.5 hrs stand/walk; difficulty with declines/stairs due to pain Functional Limitations- Work/School 1.5 hr stand/walk before requires seated rest break due to pain PT-OP-C Subjective Start: 11/04/23 17:57 Freq: Status: Active Protocol: Document 12/23/23 13:46 NM (Rec: 12/23/23 14:56 NM [id number]) OP-PT Subjective Patient Comments Patient Comments Pt reports that she tweaked her knee week of Easter, knee slid inward on hill when walking. States that she feel sbetter now, but starting over . Currently feels like she back where she started because of set back. Pt she reports that has been walking more w/o pain, sleeping better with pillow, states occasional pain with stairs, less pain with squatting. PT-OP-D Balance Start: 11/04/23 17:57 Freq: Status: Active Protocol: Document 11/05/23 09:02 NM (Rec: 11/05/23 09:48 NM [id number]) Balance Tests Romberg Romberg 30 seconds Single Limb Standing Single Limb- Right 15 seconds, increased sway/ instability Single Limb- Left 15 seconds Tandem Tandem Standing 10 seconds PT-OP-E Functional Tests Start: 11/04/23 17:57 Freq: Status: Active Protocol: Document 11/05/23 09:02 NM (Rec: 11/05/23 09:48 NM [id number]) Functional Tests Squat Test Score 10 Comments knee valgus, decreased depth; rotates L, painful PT-OP-F Manual Assessment Start: 11/04/23 17:57 Freq: Status: Active Protocol: Document 11/05/23 09:02 NM (Rec: 11/05/23 09:48 NM [id number]) Manual Assessments Soft Tissue Assessment Soft Tissue Mobility Assessment Tenderness and tightness in popliteal fossa. Slight hamstring tightness, but not formally measured Joint Mobility Assessment Joint Mobility Assessment No clicking or locking with instability tests. Pain with MCL test, but no increased mobility. R knee joint compression is painful, worse with rotation. Decreased patellar mobility globally. Pain with overpressure R knee extension PT-OP-G Mobility & Gait Start: 11/04/23 17:57 Freq: Status: Active Protocol: Document 11/05/23 09:02 NM (Rec: 11/05/23 09:48 NM [id number]) OP Gait Assessment Gait Gait Assistance Required: Independent Distance (Feet) 200 Assistive Devices Assistive Device None Gait Deviations General Gait Pattern Antalgic Factors Limiting Gait Function Factors Limiting Gait Function Decreased Activity Tolerance Comments Gait Comments No TKE R knee in stance, decreased stance time. PT-OP-H Neuro Start: 11/04/23 17:57 Freq: Status: Active Protocol: Document 11/05/23 09:02 NM (Rec: 11/05/23 09:48 NM [id number]) Sensation Evaluation Comments Summary Comments BLE intact to light touch sensation equally PT-OP-J Posture/Palpation/Skin Start: 11/04/23 17:57 Freq: Status: Active Protocol: Document 11/05/23 09:02 NM (Rec: 11/05/23 09:48 NM [id number]) Posture Evaluation Position Standing Head/C-Spine Posture Forward Head T-Spine Posture Increased Kyphosis Weight Distribution Decreased Wt.Bear on (R) Hip Posture (L) Externally Rotated,(R) Externally Rotated Knee Posture (L) Genu Valgus,(R) Genu Valgus Patellar Posture (L) Superior,(R) Superior Ankle/Foot Posture (L) Pronated,(R) Pronated Foot Arch (L) Medium Arch,(R) Medium Arch Comments Posture Comments Tendency for hyperextension L knee Palpation Assessment Location R knee Palpation Location medial joint line, anterior knee, patella, MCL, pes anserine Palpation Findings Soft Tissue Tightness, Tenderness Palpation Details Tenderness along medial joint line, MCL distally. No increased MCL thickness. No tenderness laterally on knee or at patellar tendon. No tenderness at pes anserine insertion PT-OP-K Range of Motion Start: 11/04/23 17:57 Freq: Status: Active Protocol: Document 12/23/23 13:46 NM (Rec: 12/23/23 14:56 NM [id number]) Knee Goniometric Range of Motion Knee Right Flexion Active (degrees) 125 Flexion Passive (degrees) 130 Extension Active (degrees) 2 Extension Passive (degrees) 0 Comments Pain with overpressure hyperextension 11/30/23: 130 deg flex, 0 deg ext w.o pain in hyperextension 12/23/23: 135 deg knee flexion, 0 deg ext PT-OP-L Special Tests Start: 11/04/23 17:57 Freq: Status: Active Protocol: Document 11/05/23 09:02 NM (Rec: 11/05/23 09:48 NM [id number]) Special Tests Knee Special Tests Valgus Test Results - Comments 0, 30 deg. Painful but no increased mobility compared to LLE Varus Test Results - Comments 0, 30 deg Patellar Grind Test Test Results + Posterior Sag Test Results - Posterior Draw Test Results - Anterior Draw Test Results - Parul Test Test Results + Comments Painful on medial joint line, no clicking/popping/locking Elsa's Test Results - Thessaly Test Results + Comments 5 deg and 20 deg; reproduces familiar pain Apley's Compression Test Results + Comments Catching; reproduces familiar pain PT-OP-M Strength Start: 11/04/23 17:57 Freq: Status: Active Protocol: Document 12/23/23 13:46 NM (Rec: 12/23/23 14:56 NM [id number]) Hip Strength Hip Manual Muscle Testing Right Flexion (L2) 4+ Good+ Extension (S1) 4+ Good+ Abduction 4+ Good+ Adduction 4+ Good+ External Rotation 4+ Good+ Internal Rotation 4+ Good+ Comments IE: 4/5 MMT for flex/ADD/ER/IR , 4-/5 for ext/abd Knee Strength Knee Manual Muscle Testing Right Flexion (S2) 4 Good Extension (L3) 4+ Good+ Comments IE: 4-/5 for both, No pain with resisted motions 11/30/23: 4/5, no pain 12/23/23: 4+/5 ext, 4/5 flexion , no pain PT-OP-Q Treatments Start: 11/04/23 17:57 Freq: Status: Active Protocol: Document 12/23/23 13:46 NM (Rec: 12/23/23 14:56 NM [id number]) Therapeutic Exercises Standing Exercises hip flexor stretch Side bilateral Equipment Used foot elevated on 12 step Reps/Minutes 1x30 ea Comments reports good stretch in anterior hip Y drill slider Standing Exercise Name 4 way wall clock taps (12, 3, 5, 7 o'clock) Side bilateral Resistance lvl 2 band around thighs Equipment Used d/c slider due to medial R knee pain Reps/Minutes 1x10 ea Comments pain free w/o slider; hip hinge single leg heel raise Standing Exercise Name trialed in PT Side bilateral Resistance AROM Equipment Used 2 finger support on stairs for balance Reps/Minutes 1x20 Comments cued no ankle eversion calf stretch Standing Exercise Name on step soleus and gastrc Side bilateral Equipment Used DENIS Reps/Minutes 1x60 single leg lift to mat Standing Exercise Name kickstand RDL to 12 box Side right Reps/Minutes 2x8 Comments verbal cues for hip hinge, form, single leg stability step up/back Standing Exercise Name stairs: 1. 12 6 steps, 2. 14 stairs MAP bldg Side bilateral Equipment Used reciprocal pattern Reps/Minutes 1. 12, 2. 14 Comments pain free in R knee, no valgus or compensation squat Standing Exercise Name Squat Side bilateral Equipment Used >90 deg with chair behind Reps/Minutes 1x15 for goal, 1x10 Comments pain free w/ less depth, good form with mirror for cues Self-Care/Home Management Treatment Education Patient Education Home Exercise Program Other Education HEP: kickstand RDL, single leg heel raise, 4 way resisted tap, lateral step down PT-OP-R Modalities Start: 11/04/23 17:57 Freq: Status: Active Protocol: Document 11/19/23 09:52 NM (Rec: 11/19/23 10:34 NM [id number]) Hot Pack/Cold Pack Treatment Cold Pack Location R ant/post knee Patient Position Sitting Comments Sitting with leg elevated. Pt wearing pants, unable to assess skin before/after. Towel between pt pants and cold pack. Pt sitting with collier within reach, 5 minutes. Tolerated well. PT-OP-T Assessment and Plan Start: 11/04/23 17:57 Freq: Status: Active Protocol: Document 12/23/23 13:46 NM (Rec: 12/23/23 14:56 NM [id number]) Physical Therapy Assessment Goals Five Impairment HEP Impairment no daily HEP/exercise program Short Term Goal (STG) Pt will report compliance with HEP 2-3x/wk in order to maximize gains made during PT sessions and demonstrate improved activity tolerance. STG Duration 3 weeks MET Senior Care Goal (LTG) Pt will report compliance with HEP 2-3x/wk and/or establish walking program 2-3x/wk for maintenance after PT and demonstrate improved activity tolerance. 12/23/23: 4x/wk LTG Duration 6 weeks MET Four Impairment sleep Impairment pain with position during sleep Senior Care Goal (LTG) Pt will report no R knee pain when changing sleep positions in order to demonstrate improved pain management and sleeping posture 11/30/23: Pt reports that when sleeping with pillow, she has no knee pain LTG Duration 6 weeks MET Three Impairment function Impairment pain with stairs Short Term Goal (STG) Pt will be able to perform at least 10 eccentric step downs with R knee pain <4/10 and without compensation in order to demonstrate improved knee stability and control during stairs 11/30/23: 10 eccentric step downs with 4/10 pain STG Duration 3 weeks PROGRESSING Senior Care Goal (LTG) Pt will be able to perform at least 12 stairs with or without a hand rail with R knee pain <4/10 and without compensation in order to demonstrate improved knee stability and control during stairs. 12/23/23: no pain with 12 stairs or full stairs 14 with descent LTG Duration 6 weeks MET Two Impairment function Impairment 10 bilateral squats with pain, compensation Short Term Goal (STG) Pt will be able to perform at least 10 bilateral squats above 90 deg without compensation and pain <4/10 in order demonstrate improved hip and knee strength for ADLs , stairs 11/30/23: 3/10 at end of set to chair, 2x10, equal/bilateral, no compensation STG Duration 3 weeks MET Parasitologist Goal (LTG) Pt will be able to perform at least 15 bilateral squats above 90 deg without compensation and pain <4/10 in order demonstrate improved hip and knee strength for ADLs , stairs 12/23/23: 15 squats above 90 deg LTG Duration 6 weeks MET One Impairment strength Impairment R knee flex/ext strength 4-/5 MMT Short Term Goal (STG) Pt will improve R knee flex/ ext MMT to at least 4/5 in order to demonstrate increased knee strength for ADLs, gait 11/30/23: 4/5 for both, no pain STG Duration 3 weeks MET Senior Care Goal (LTG) Pt will improve R knee flex/ ext MMT to at least 4+/5 in order to demonstrate increased knee strength for ADLs, gait 12/23/23: 4/5 for knee flexion, 4+/5 for knee ext LTG Duration 6 weeks PARTIALLY MET Assessment Summary Assessment Pt tolerated session well. She demonstrates difficulty activities requiring single leg stability. Challenged with single leg RDL; regressed to kickstand RDL for form and to facilitate better ankle/hip stability. Initiated lateral step downs for greater hip abduction strength. Pt without pain in anterior knee until last rep. Trialed slider hip clock with band, but had medial pain; discontinued slider, no pain with heel taps instead. Pt would benefit from skilled PT for greater progressive hip strengthening, single leg stability, and dynamic stabilization in order to improve activity levels and proprioception. Physical Therapy Plan Frequency and Duration Frequency of Treatment 1x/Week Duration of treatment (weeks) 8 Plan of Care Start Date 12/23/23 Plan of Care End Date 02/26/24 Therapeutic Interventions Therapeutic Interventions Aquatic Therapy,Balance Training,Coordination Training ,Gait Training,Home Exercise Program,Joint Mobilizations, Manual Therapy,Neuromuscular Re-education,Orthotic/ Prosthetic Management,Patient/ Caregiver Education,Self-Care/ Home Management,Sensory Integration,Soft Tissue Mobilization,Taping, Therapeutic Activities, Therapeutic Exercises Modalities Biofeedback,Cold Pack/Ice Massage,Electric Stimulation, Hot Packs,Ultrasound, Vasopneumatic Devices Next Visit Focus/Plan Next Note Type Treatment Note Next Visit Plan Next session: lateral heel tap from 4 step, clock, SLS, foam squat vs bosu squat, SL RDL vs kickstand, SL activities with balance, cont glute strengthening (split squat, lunge, bwd lunge) Next PN 01/21 (recheck goals)
--- NOTE | 2023-12-23 14:57 | PT.OPPOC ---
Physical, Occupational & Speech Therapy At [facility] Current Diagnoses Other chronic pain (12/23/23) Pain in right knee (12/23/23) Other lack of coordination (12/23/23) Weakness (12/23/23) Visit Care Team Role Provider Type Elina Colon MD Attending Provider Physician Family Provider Primary Care Provider Referring Provider Specialty: [facility] Address: [address] [place] [address] [place], [address] Email: [email or web address] Plan Of Care PT-OP-T Assessment and Plan Start: 11/04/23 17:57 Freq: Status: Active Protocol: Document 12/23/23 13:46 NM (Rec: 12/23/23 14:56 NM [id number]) Physical Therapy Assessment Goals Five Impairment HEP Impairment no daily HEP/exercise program Short Term Goal (STG) Pt will report compliance with HEP 2-3x/wk in order to maximize gains made during PT sessions and demonstrate improved activity tolerance. STG Duration 3 weeks MET [place] Goal (LTG) Pt will report compliance with HEP 2-3x/wk and/or establish walking program 2-3x/wk for maintenance after PT and demonstrate improved activity tolerance. 12/23/23: 4x/wk LTG Duration 6 weeks MET Four Impairment sleep Impairment pain with position during sleep [place] Goal (LTG) Pt will report no R knee pain when changing sleep positions in order to demonstrate improved pain management and sleeping posture 11/30/23: Pt reports that when sleeping with pillow, she has no knee pain LTG Duration 6 weeks MET Three Impairment function Impairment pain with stairs Short Term Goal (STG) Pt will be able to perform at least 10 eccentric step downs with R knee pain <4/10 and without compensation in order to demonstrate improved knee stability and control during stairs 11/30/23: 10 eccentric step downs with 4/10 pain STG Duration 3 weeks PROGRESSING Intermediate Goal (LTG) Pt will be able to perform at least 12 stairs with or without a hand rail with R knee pain <4/10 and without compensation in order to demonstrate improved knee stability and control during stairs. 12/23/23: no pain with 12 stairs or full stairs 14 with descent LTG Duration 6 weeks MET Two Impairment function Impairment 10 bilateral squats with pain, compensation Short Term Goal (STG) Pt will be able to perform at least 10 bilateral squats above 90 deg without compensation and pain <4/10 in order demonstrate improved hip and knee strength for ADLs , stairs 11/30/23: 3/10 at end of set to chair, 2x10, equal/bilateral, no compensation STG Duration 3 weeks MET [place] Goal (LTG) Pt will be able to perform at least 15 bilateral squats above 90 deg without compensation and pain <4/10 in order demonstrate improved hip and knee strength for ADLs , stairs 12/23/23: 15 squats above 90 deg LTG Duration 6 weeks MET One Impairment strength Impairment R knee flex/ext strength 4-/5 MMT Short Term Goal (STG) Pt will improve R knee flex/ ext MMT to at least 4/5 in order to demonstrate increased knee strength for ADLs, gait 11/30/23: 4/5 for both, no pain STG Duration 3 weeks MET Intermediate Goal (LTG) Pt will improve R knee flex/ ext MMT to at least 4+/5 in order to demonstrate increased knee strength for ADLs, gait 12/23/23: 4/5 for knee flexion, 4+/5 for knee ext LTG Duration 6 weeks PARTIALLY MET Assessment Summary Assessment Pt has been seen x9 visits for R knee pain. When assessed today, pt does not demonstrate any clicking with meniscus testing, no ligamentous instability of knee. Pt reports less clicking in knee compared to at IE during gait and stairs. Pt demonstrates improved form with stairs and squat. Pain free for both; squats pain free at limited depth. Pt has full knee ROM. Right knee and hip strength improved, but R knee flexion still 4/5 although all others 4+/5 MMT. LEFS now 75/80. She is wanting further assessment from inventory management specialist at this time due to recent exacerbation in early December. Pt would benefit from further skilled PT for progressive RLE strengthening and dynamic stabilization training in order to decrease pain symptoms and improve activity tolerance for return to PLOF. Physical Therapy Plan Frequency and Duration Frequency of Treatment 1x/Week Duration of treatment (weeks) 8 Plan of Care Start Date 12/23/23 Plan of Care End Date 02/26/24 Therapeutic Interventions Therapeutic Interventions Aquatic Therapy,Balance Training,Coordination Training ,Gait Training,Home Exercise Program,Joint Mobilizations, Manual Therapy,Neuromuscular Re-education,Orthotic/ Prosthetic Management,Patient/ Caregiver Education,Self-Care/ Home Management,Sensory Integration,Soft Tissue Mobilization,Taping, Therapeutic Activities, Therapeutic Exercises Modalities Biofeedback,Cold Pack/Ice Massage,Electric Stimulation, Hot Packs,Ultrasound, Vasopneumatic Devices Next Visit Focus/Plan Next Note Type Treatment Note Next Visit Plan Next session: lateral heel tap from 4 step, clock, SLS, foam squat vs bosu squat, SL RDL vs kickstand, SL activities with balance, cont glute strengthening (split squat, lunge, bwd lunge) Next PN 01/21 (recheck goals) Plan of Care Dates Plan of Care Start Date 12/23/23 Plan of Care End Date 02/26/24 Electronically Signed by: Daysi Amador, PT 12/23/23 [id number] If you are in agreement with this Plan of Care, please return a signed and dated copy. I have reviewed this Plan of Care and certify that the skilled therapy services above are required to meet the patient?s needs. Physician Signature Date Printed Name and Credentials Clinical Instructor Signature Printed Name and Credentials
--- NOTE | 2024-01-05 16:12 | PT.OTN ---
Current Diagnoses Other chronic pain (01/05/24) Pain in right knee (01/05/24) Other lack of coordination (01/05/24) Weakness (01/05/24) Physical Therapy Treatment Note PT-OP-A Visit Information Start: 11/04/23 17:57 Freq: Status: Active Protocol: Document 01/05/24 15:12 SW (Rec: 01/05/24 16:11 SW [id number]) Out-Patient Physical Therapy Visit Information Visit Information Visit Type Treatment Note Visit Start Time 15:15 Visit Stop Time 16:55 Visit Number 11 Number of TRAVEL REGISTERED NURSE NICU Visits 1 Precautions Precautions No twisting, limit squat depth PT-OP-B Current Condition Start: 11/04/23 17:57 Freq: Status: Active Protocol: Document 11/05/23 09:02 NM (Rec: 11/05/23 09:48 NM [id number]) Current Condition History of Current Condition Onset Date April 2023 Current Complaints pain, catching/locking, warm History of Current Condition Pt presents with R knee pain, beginning at least 6 months ago. She reports that her knee feels like it wants to pop. She thinks that it occurred when her large dog ran into her leg from outside. Reports no falls, twists, or other injuries. No previous injuries or surgeries. Her R knee pain wakes her up with positional changes; pain also with squatting, walking or standing during her classes (1.5 hrs), descending stairs, pivoting/ turning. She reports that it doesn't prevent her from ADLs, but is aggravating. She has been squatting ea day, which can cause pain. She walks a few times/wk occasionally, but otherwise not active. Pt states that her R knee feels like it could give out and is loose but hasn't had any instances of her knee buckling . Pt's knee aches with sitting ; she also reports that occasionally she gets locking, clicking, or feels stuck. Prior Treatments and Tests No imaging performed (ordered PT first), no previous treatments Current Functional Impairments (Reported) Functional Limitations- ADL's pain with sleeping position Functional Limitations- Mobility/Gait 1.5 hrs stand/walk; difficulty with declines/stairs due to pain Functional Limitations- Work/School 1.5 hr stand/walk before requires seated rest break due to pain PT-OP-C Subjective Start: 11/04/23 17:57 Freq: Status: Active Protocol: Document 01/05/24 15:12 SW (Rec: 01/05/24 16:11 SW [id number]) OP-PT Subjective Patient Comments Patient Comments Pt reports playing with dog, slipped on mossy ground, hurt adductor mms. Pt reports starting lifting light weight with life trainer. Currently 2/10 knee pain. PT-OP-D Balance Start: 11/04/23 17:57 Freq: Status: Active Protocol: Document 11/05/23 09:02 NM (Rec: 11/05/23 09:48 NM [id number]) Balance Tests Romberg Romberg 30 seconds Single Limb Standing Single Limb- Right 15 seconds, increased sway/ instability Single Limb- Left 15 seconds Tandem Tandem Standing 10 seconds PT-OP-E Functional Tests Start: 11/04/23 17:57 Freq: Status: Active Protocol: Document 11/05/23 09:02 NM (Rec: 11/05/23 09:48 NM [id number]) Functional Tests Squat Test Score 10 Comments knee valgus, decreased depth; rotates L, painful PT-OP-F Manual Assessment Start: 11/04/23 17:57 Freq: Status: Active Protocol: Document 11/05/23 09:02 NM (Rec: 11/05/23 09:48 NM [id number]) Manual Assessments Soft Tissue Assessment Soft Tissue Mobility Assessment Tenderness and tightness in popliteal fossa. Slight hamstring tightness, but not formally measured Joint Mobility Assessment Joint Mobility Assessment No clicking or locking with instability tests. Pain with MCL test, but no increased mobility. R knee joint compression is painful, worse with rotation. Decreased patellar mobility globally. Pain with overpressure R knee extension PT-OP-G Mobility & Gait Start: 11/04/23 17:57 Freq: Status: Active Protocol: Document 11/05/23 09:02 NM (Rec: 11/05/23 09:48 NM [id number]) OP Gait Assessment Gait Gait Assistance Required: Independent Distance (Feet) 200 Assistive Devices Assistive Device None Gait Deviations General Gait Pattern Antalgic Factors Limiting Gait Function Factors Limiting Gait Function Decreased Activity Tolerance Comments Gait Comments No TKE R knee in stance, decreased stance time. PT-OP-H Neuro Start: 11/04/23 17:57 Freq: Status: Active Protocol: Document 11/05/23 09:02 NM (Rec: 11/05/23 09:48 NM [id number]) Sensation Evaluation Comments Summary Comments BLE intact to light touch sensation equally PT-OP-J Posture/Palpation/Skin Start: 11/04/23 17:57 Freq: Status: Active Protocol: Document 11/05/23 09:02 NM (Rec: 11/05/23 09:48 NM [id number]) Posture Evaluation Position Standing Head/C-Spine Posture Forward Head T-Spine Posture Increased Kyphosis Weight Distribution Decreased Wt.Bear on (R) Hip Posture (L) Externally Rotated,(R) Externally Rotated Knee Posture (L) Genu Valgus,(R) Genu Valgus Patellar Posture (L) Superior,(R) Superior Ankle/Foot Posture (L) Pronated,(R) Pronated Foot Arch (L) Medium Arch,(R) Medium Arch Comments Posture Comments Tendency for hyperextension L knee Palpation Assessment Location R knee Palpation Location medial joint line, anterior knee, patella, MCL, pes anserine Palpation Findings Soft Tissue Tightness, Tenderness Palpation Details Tenderness along medial joint line, MCL distally. No increased MCL thickness. No tenderness laterally on knee or at patellar tendon. No tenderness at pes anserine insertion PT-OP-K Range of Motion Start: 11/04/23 17:57 Freq: Status: Active Protocol: Document 12/23/23 13:46 NM (Rec: 12/23/23 14:56 NM [id number]) Knee Goniometric Range of Motion Knee Right Flexion Active (degrees) 125 Flexion Passive (degrees) 130 Extension Active (degrees) 2 Extension Passive (degrees) 0 Comments Pain with overpressure hyperextension 11/30/23: 130 deg flex, 0 deg ext w.o pain in hyperextension 12/23/23: 135 deg knee flexion, 0 deg ext PT-OP-L Special Tests Start: 11/04/23 17:57 Freq: Status: Active Protocol: Document 11/05/23 09:02 NM (Rec: 11/05/23 09:48 NM [id number]) Special Tests Knee Special Tests Valgus Test Results - Comments 0, 30 deg. Painful but no increased mobility compared to LLE Varus Test Results - Comments 0, 30 deg Patellar Grind Test Test Results + Posterior Sag Test Results - Posterior Draw Test Results - Anterior Draw Test Results - Parul Test Test Results + Comments Painful on medial joint line, no clicking/popping/locking Elsa's Test Results - Thessaly Test Results + Comments 5 deg and 20 deg; reproduces familiar pain Apley's Compression Test Results + Comments Catching; reproduces familiar pain PT-OP-M Strength Start: 11/04/23 17:57 Freq: Status: Active Protocol: Document 12/23/23 13:46 NM (Rec: 12/23/23 14:56 NM [id number]) Hip Strength Hip Manual Muscle Testing Right Flexion (L2) 4+ Good+ Extension (S1) 4+ Good+ Abduction 4+ Good+ Adduction 4+ Good+ External Rotation 4+ Good+ Internal Rotation 4+ Good+ Comments IE: 4/5 MMT for flex/ADD/ER/IR , 4-/5 for ext/abd Knee Strength Knee Manual Muscle Testing Right Flexion (S2) 4 Good Extension (L3) 4+ Good+ Comments IE: 4-/5 for both, No pain with resisted motions 11/30/23: 4/5, no pain 12/23/23: 4+/5 ext, 4/5 flexion , no pain PT-OP-Q Treatments Start: 11/04/23 17:57 Freq: Status: Active Protocol: Document 01/05/24 15:12 SW (Rec: 01/05/24 16:11 [id number]) Gym Equipment Cable Column (Body Solid) Knee Flex Details Knee flex Resistance 30#,40# Reps/Time x10, 2 x 10 Therapeutic Exercises Standing Exercises Lateral step down Standing Exercise Name lateral step down Side bilateral Equipment Used 4 step Reps/Minutes x 10 each Y drill slider Standing Exercise Name 4 way clock taps Side bilateral Resistance lvl 2 band, above knees Reps/Minutes x 10 ea Comments no pain squat Standing Exercise Name Squat>foam squat Side bilateral Resistance Lvl 3 around thighs Equipment Used <90 deg with chair behind Reps/Minutes 1x15 for goal, 1x10 Comments pain free w/ less depth, good form with mirror for cues PT-OP-R Modalities Start: 11/04/23 17:57 Freq: Status: Active Protocol: Document 01/05/24 15:12 SW (Rec: 01/05/24 16:12 [id number]) Hot Pack/Cold Pack Treatment Cold Pack Patient Position Hooklying Patient Tolerance Good Comments Bolster under knees, x 7 min, collier within reach PT-OP-T Assessment and Plan Start: 11/04/23 17:57 Freq: Status: Active Protocol: Document 01/05/24 15:12 SW (Rec: 01/05/24 16:11 SW [id number]) Physical Therapy Assessment Goals Five Impairment HEP Impairment no daily HEP/exercise program Short Term Goal (STG) Pt will report compliance with HEP 2-3x/wk in order to maximize gains made during PT sessions and demonstrate improved activity tolerance. STG Duration 3 weeks MET Snf Goal (LTG) Pt will report compliance with HEP 2-3x/wk and/or establish walking program 2-3x/wk for maintenance after PT and demonstrate improved activity tolerance. 12/23/23: 4x/wk LTG Duration 6 weeks MET Four Impairment sleep Impairment pain with position during sleep Snf Goal (LTG) Pt will report no R knee pain when changing sleep positions in order to demonstrate improved pain management and sleeping posture 11/30/23: Pt reports that when sleeping with pillow, she has no knee pain LTG Duration 6 weeks MET Three Impairment function Impairment pain with stairs Short Term Goal (STG) Pt will be able to perform at least 10 eccentric step downs with R knee pain <4/10 and without compensation in order to demonstrate improved knee stability and control during stairs 11/30/23: 10 eccentric step downs with 4/10 pain STG Duration 3 weeks PROGRESSING [employer] Goal (LTG) Pt will be able to perform at least 12 stairs with or without a hand rail with R knee pain <4/10 and without compensation in order to demonstrate improved knee stability and control during stairs. 12/23/23: no pain with 12 stairs or full stairs 14 with descent LTG Duration 6 weeks MET Two Impairment function Impairment 10 bilateral squats with pain, compensation Short Term Goal (STG) Pt will be able to perform at least 10 bilateral squats above 90 deg without compensation and pain <4/10 in order demonstrate improved hip and knee strength for ADLs , stairs 11/30/23: 3/10 at end of set to chair, 2x10, equal/bilateral, no compensation STG Duration 3 weeks MET Snf Goal (LTG) Pt will be able to perform at least 15 bilateral squats above 90 deg without compensation and pain <4/10 in order demonstrate improved hip and knee strength for ADLs , stairs 12/23/23: 15 squats above 90 deg LTG Duration 6 weeks MET One Impairment strength Impairment R knee flex/ext strength 4-/5 MMT Short Term Goal (STG) Pt will improve R knee flex/ ext MMT to at least 4/5 in order to demonstrate increased knee strength for ADLs, gait 11/30/23: 4/5 for both, no pain STG Duration 3 weeks MET Manager [employer] Goal (LTG) Pt will improve R knee flex/ ext MMT to at least 4+/5 in order to demonstrate increased knee strength for ADLs, gait 12/23/23: 4/5 for knee flexion, 4+/5 for knee ext LTG Duration 6 weeks PARTIALLY MET Assessment Summary Assessment Initiated fwd/retro lunges this session cued pt to limit depth, pt tolerated well, though did start to feel discomfort with onset of fatigue. Reviewed clock taps with level 2 band at thighs, pt reports no pain, good carryover of exercise, added to HEP. Continued HS curls on cable column this session to work toward meeting pt knee flex strength goal, progressed to 40# good tolerance, pt fatigued at end of set. Physical Therapy Plan Frequency and Duration Frequency of Treatment 1x/Week Duration of treatment (weeks) 8 Plan of Care Start Date 12/23/23 Plan of Care End Date 02/26/24 Therapeutic Interventions Therapeutic Interventions Aquatic Therapy,Balance Training,Coordination Training ,Gait Training,Home Exercise Program,Joint Mobilizations, Manual Therapy,Neuromuscular Re-education,Orthotic/ Prosthetic Management,Patient/ Caregiver Education,Self-Care/ Home Management,Sensory Integration,Soft Tissue Mobilization,Taping, Therapeutic Activities, Therapeutic Exercises Modalities Biofeedback,Cold Pack/Ice Massage,Electric Stimulation, Hot Packs,Ultrasound, Vasopneumatic Devices Next Visit Focus/Plan Next Note Type Treatment Note Next Visit Plan Next session: lateral heel tap from 4 step, clock, SLS, foam squat vs bosu squat, SL RDL vs kickstand, SL activities with balance, cont glute strengthening (split squat, lunge, bwd lunge) Next PN 01/21 (recheck goals)
--- NOTE | 2024-01-14 16:30 | PT.OTN ---
Current Diagnoses Other chronic pain (01/14/24) Pain in right knee (01/14/24) Other lack of coordination (01/14/24) Weakness (01/14/24) Physical Therapy Treatment Note PT-OP-A Visit Information Start: 11/04/23 17:57 Freq: Status: Active Protocol: Document 01/14/24 13:49 AB (Rec: 01/14/24 14:32 AB [id number]) Out-Patient Physical Therapy Visit Information Visit Information Visit Type Treatment Note Visit Note Access Code: [email or web address] 03/16 Visit Start Time 13:49 Visit Stop Time 14:30 Visit Number 12 Number of RESEARCH PSYCHOLOGIST Visits 2 Precautions Precautions No twisting, limit squat depth PT-OP-B Current Condition Start: 11/04/23 17:57 Freq: Status: Active Protocol: Document 11/05/23 09:02 NM (Rec: 11/05/23 09:48 NM [id number]) Current Condition History of Current Condition Onset Date April 2023 Current Complaints pain, catching/locking, warm History of Current Condition Pt presents with R knee pain, beginning at least 6 months ago. She reports that her knee feels like it wants to pop. She thinks that it occurred when her large dog ran into her leg from outside. Reports no falls, twists, or other injuries. No previous injuries or surgeries. Her R knee pain wakes her up with positional changes; pain also with squatting, walking or standing during her classes (1.5 hrs), descending stairs, pivoting/ turning. She reports that it doesn't prevent her from ADLs, but is aggravating. She has been squatting ea day, which can cause pain. She walks a few times/wk occasionally, but otherwise not active. Pt states that her R knee feels like it could give out and is loose but hasn't had any instances of her knee buckling . Pt's knee aches with sitting ; she also reports that occasionally she gets locking, clicking, or feels stuck. Prior Treatments and Tests No imaging performed (ordered PT first), no previous treatments Current Functional Impairments (Reported) Functional Limitations- ADL's pain with sleeping position Functional Limitations- Mobility/Gait 1.5 hrs stand/walk; difficulty with declines/stairs due to pain Functional Limitations- Work/School 1.5 hr stand/walk before requires seated rest break due to pain PT-OP-C Subjective Start: 11/04/23 17:57 Freq: Status: Active Protocol: Document 01/14/24 13:49 AB (Rec: 01/14/24 14:32 AB [id number]) OP-PT Subjective Patient Comments Patient Comments Patient reports it may be worse, has been walking more. Patient reports she is doing the [place]. Patient/training questioning if pain left thorcic spine is referring to right LE. Patient rates right knee pain 2-3/10 ambulating into session and getting in and out of car (lifting LE ) increased pain. PT-OP-D Balance Start: 11/04/23 17:57 Freq: Status: Active Protocol: Document 11/05/23 09:02 NM (Rec: 11/05/23 09:48 NM [id number]) Balance Tests Romberg Romberg 30 seconds Single Limb Standing Single Limb- Right 15 seconds, increased sway/ instability Single Limb- Left 15 seconds Tandem Tandem Standing 10 seconds PT-OP-E Functional Tests Start: 11/04/23 17:57 Freq: Status: Active Protocol: Document 11/05/23 09:02 NM (Rec: 11/05/23 09:48 NM [id number]) Functional Tests Squat Test Score 10 Comments knee valgus, decreased depth; rotates L, painful PT-OP-F Manual Assessment Start: 11/04/23 17:57 Freq: Status: Active Protocol: Document 11/05/23 09:02 NM (Rec: 11/05/23 09:48 NM [id number]) Manual Assessments Soft Tissue Assessment Soft Tissue Mobility Assessment Tenderness and tightness in popliteal fossa. Slight hamstring tightness, but not formally measured Joint Mobility Assessment Joint Mobility Assessment No clicking or locking with instability tests. Pain with MCL test, but no increased mobility. R knee joint compression is painful, worse with rotation. Decreased patellar mobility globally. Pain with overpressure R knee extension PT-OP-G Mobility & Gait Start: 11/04/23 17:57 Freq: Status: Active Protocol: Document 11/05/23 09:02 NM (Rec: 11/05/23 09:48 NM [id number]) OP Gait Assessment Gait Gait Assistance Required: Independent Distance (Feet) 200 Assistive Devices Assistive Device None Gait Deviations General Gait Pattern Antalgic Factors Limiting Gait Function Factors Limiting Gait Function Decreased Activity Tolerance Comments Gait Comments No TKE R knee in stance, decreased stance time. PT-OP-H Neuro Start: 11/04/23 17:57 Freq: Status: Active Protocol: Document 11/05/23 09:02 NM (Rec: 11/05/23 09:48 NM [id number]) Sensation Evaluation Comments Summary Comments BLE intact to light touch sensation equally PT-OP-J Posture/Palpation/Skin Start: 11/04/23 17:57 Freq: Status: Active Protocol: Document 11/05/23 09:02 NM (Rec: 11/05/23 09:48 NM [id number]) Posture Evaluation Position Standing Head/C-Spine Posture Forward Head T-Spine Posture Increased Kyphosis Weight Distribution Decreased Wt.Bear on (R) Hip Posture (L) Externally Rotated,(R) Externally Rotated Knee Posture (L) Genu Valgus,(R) Genu Valgus Patellar Posture (L) Superior,(R) Superior Ankle/Foot Posture (L) Pronated,(R) Pronated Foot Arch (L) Medium Arch,(R) Medium Arch Comments Posture Comments Tendency for hyperextension L knee Palpation Assessment Location R knee Palpation Location medial joint line, anterior knee, patella, MCL, pes anserine Palpation Findings Soft Tissue Tightness, Tenderness Palpation Details Tenderness along medial joint line, MCL distally. No increased MCL thickness. No tenderness laterally on knee or at patellar tendon. No tenderness at pes anserine insertion PT-OP-K Range of Motion Start: 11/04/23 17:57 Freq: Status: Active Protocol: Document 12/23/23 13:46 NM (Rec: 12/23/23 14:56 NM [id number]) Knee Goniometric Range of Motion Knee Right Flexion Active (degrees) 125 Flexion Passive (degrees) 130 Extension Active (degrees) 2 Extension Passive (degrees) 0 Comments Pain with overpressure hyperextension 11/30/23: 130 deg flex, 0 deg ext w.o pain in hyperextension 12/23/23: 135 deg knee flexion, 0 deg ext PT-OP-L Special Tests Start: 11/04/23 17:57 Freq: Status: Active Protocol: Document 11/05/23 09:02 NM (Rec: 11/05/23 09:48 NM [id number]) Special Tests Knee Special Tests Valgus Test Results - Comments 0, 30 deg. Painful but no increased mobility compared to LLE Varus Test Results - Comments 0, 30 deg Patellar Grind Test Test Results + Posterior Sag Test Results - Posterior Draw Test Results - Anterior Draw Test Results - Parul Test Test Results + Comments Painful on medial joint line, no clicking/popping/locking Elsa's Test Results - Thessaly Test Results + Comments 5 deg and 20 deg; reproduces familiar pain Apley's Compression Test Results + Comments Catching; reproduces familiar pain PT-OP-M Strength Start: 11/04/23 17:57 Freq: Status: Active Protocol: Document 12/23/23 13:46 NM (Rec: 12/23/23 14:56 NM [id number]) Hip Strength Hip Manual Muscle Testing Right Flexion (L2) 4+ Good+ Extension (S1) 4+ Good+ Abduction 4+ Good+ Adduction 4+ Good+ External Rotation 4+ Good+ Internal Rotation 4+ Good+ Comments IE: 4/5 MMT for flex/ADD/ER/IR , 4-/5 for ext/abd Knee Strength Knee Manual Muscle Testing Right Flexion (S2) 4 Good Extension (L3) 4+ Good+ Comments IE: 4-/5 for both, No pain with resisted motions 11/30/23: 4/5, no pain 12/23/23: 4+/5 ext, 4/5 flexion , no pain PT-OP-Q Treatments Start: 11/04/23 17:57 Freq: Status: Active Protocol: Document 01/14/24 13:49 AB (Rec: 01/14/24 14:32 AB [id number]) Therapeutic Exercises Supine Exercises hamstring stretch Supine Exercise Name hooklying and with LE on mat, seated initiated Side right Reps/Minutes 3x60 Sitting Exercises seated hip abd with band Equipment Used level 4 Reps/Minutes one minute X 1 Standing Exercises standing glute med activation Side bilateral Reps/Minutes one minute X 1 each LE Y drill slider Standing Exercise Name 4 way clock taps Side bilateral Resistance lvl 2 band, above knees Reps/Minutes x 10 ea Comments no pain Manual Therapy Treatment Soft Tissue Mobilization right knee Body Location medial, lateral, peripatellar area Mobilization Type Cross-Friction,Rolling Intensity/Depth Moderate Body Position Hooklying right quad Body Location for swelling Mobilization Type Other Intensity/Depth Moderate Body Position Hooklying Taping right knee Body Location right knee Treatment Focus unload fat pad, improve tracking medially Type of Tape leukotape and cover roll Self-Care/Home Management Treatment Activities Self-Care/Home Management Activities glute isometric standing at wall, and progression to level 4 band for glute med activation seated. PT-OP-R Modalities Start: 11/04/23 17:57 Freq: Status: Active Protocol: Document 01/05/24 15:12 SW (Rec: 01/05/24 16:12 SW [id number]) Hot Pack/Cold Pack Treatment Cold Pack Patient Position Hooklying Patient Tolerance Good Comments Bolster under knees, x 7 min, collier within reach PT-OP-T Assessment and Plan Start: 11/04/23 17:57 Freq: Status: Active Protocol: Document 01/14/24 13:49 AB (Rec: 01/14/24 14:32 AB [id number]) Physical Therapy Assessment Goals Five Impairment HEP Impairment no daily HEP/exercise program Short Term Goal (STG) Pt will report compliance with HEP 2-3x/wk in order to maximize gains made during PT sessions and demonstrate improved activity tolerance. STG Duration 3 weeks MET Intermediate Goal (LTG) Pt will report compliance with HEP 2-3x/wk and/or establish walking program 2-3x/wk for maintenance after PT and demonstrate improved activity tolerance. 12/23/23: 4x/wk LTG Duration 6 weeks MET Four Impairment sleep Impairment pain with position during sleep Bumper And Painter Goal (LTG) Pt will report no R knee pain when changing sleep positions in order to demonstrate improved pain management and sleeping posture 11/30/23: Pt reports that when sleeping with pillow, she has no knee pain LTG Duration 6 weeks MET Three Impairment function Impairment pain with stairs Short Term Goal (STG) Pt will be able to perform at least 10 eccentric step downs with R knee pain <4/10 and without compensation in order to demonstrate improved knee stability and control during stairs 11/30/23: 10 eccentric step downs with 4/10 pain STG Duration 3 weeks PROGRESSING Bumper And Painter Goal (LTG) Pt will be able to perform at least 12 stairs with or without a hand rail with R knee pain <4/10 and without compensation in order to demonstrate improved knee stability and control during stairs. 12/23/23: no pain with 12 stairs or full stairs 14 with descent LTG Duration 6 weeks MET Two Impairment function Impairment 10 bilateral squats with pain, compensation Short Term Goal (STG) Pt will be able to perform at least 10 bilateral squats above 90 deg without compensation and pain <4/10 in order demonstrate improved hip and knee strength for ADLs , stairs 11/30/23: 3/10 at end of set to chair, 2x10, equal/bilateral, no compensation STG Duration 3 weeks MET Intermediate Goal (LTG) Pt will be able to perform at least 15 bilateral squats above 90 deg without compensation and pain <4/10 in order demonstrate improved hip and knee strength for ADLs , stairs 12/23/23: 15 squats above 90 deg LTG Duration 6 weeks MET One Impairment strength Impairment R knee flex/ext strength 4-/5 MMT Short Term Goal (STG) Pt will improve R knee flex/ ext MMT to at least 4/5 in order to demonstrate increased knee strength for ADLs, gait 11/30/23: 4/5 for both, no pain STG Duration 3 weeks MET Intermediate Goal (LTG) Pt will improve R knee flex/ ext MMT to at least 4+/5 in order to demonstrate increased knee strength for ADLs, gait 12/23/23: 4/5 for knee flexion, 4+/5 for knee ext LTG Duration 6 weeks PARTIALLY MET Assessment Summary Assessment Vira reports having no pain ambulating out of session without device. Pt verbalizing having to focus on knee alignment with right knee 4 way clock taps vs left knee she does not have to focus. Physical Therapy Plan Frequency and Duration Frequency of Treatment 1x/Week Duration of treatment (weeks) 8 Plan of Care Start Date 12/23/23 Plan of Care End Date 02/26/24 Next Visit Focus/Plan Next Note Type Treatment Note Next Visit Plan Next session: lateral heel tap from 4 step, clock, SLS, foam squat vs bosu squat, SL RDL vs kickstand, SL activities with balance, cont glute strengthening (split squat, lunge, bwd lunge) Next PN 01/21 (recheck goals)
--- NOTE | 2024-01-22 15:51 | PT.OTN ---
Current Diagnoses Other chronic pain (01/22/24) Pain in right knee (01/22/24) Other lack of coordination (01/22/24) Weakness (01/22/24) Physical Therapy Treatment Note PT-OP-A Visit Information Start: 11/04/23 17:57 Freq: Status: Active Protocol: Document 01/22/24 13:52 NM (Rec: 01/22/24 14:17 NM [id number]) Out-Patient Physical Therapy Visit Information Visit Information Visit Type Progress Note Visit Start Time 13:52 Visit Stop Time 14:30 Visit Number 13 Evaluation Information Evaluation Date 11/05/23 PT-OP-B Current Condition Start: 11/04/23 17:57 Freq: Status: Active Protocol: Document 11/05/23 09:02 NM (Rec: 11/05/23 09:48 NM [id number]) Current Condition History of Current Condition Onset Date April 2023 Current Complaints pain, catching/locking, warm History of Current Condition Pt presents with R knee pain, beginning at least 6 months ago. She reports that her knee feels like it wants to pop. She thinks that it occurred when her large dog ran into her leg from outside. Reports no falls, twists, or other injuries. No previous injuries or surgeries. Her R knee pain wakes her up with positional changes; pain also with squatting, walking or standing during her classes (1.5 hrs), descending stairs, pivoting/ turning. She reports that it doesn't prevent her from ADLs, but is aggravating. She has been squatting ea day, which can cause pain. She walks a few times/wk occasionally, but otherwise not active. Pt states that her R knee feels like it could give out and is loose but hasn't had any instances of her knee buckling . Pt's knee aches with sitting ; she also reports that occasionally she gets locking, clicking, or feels stuck. Prior Treatments and Tests No imaging performed (ordered PT first), no previous treatments Current Functional Impairments (Reported) Functional Limitations- ADL's pain with sleeping position Functional Limitations- Mobility/Gait 1.5 hrs stand/walk; difficulty with declines/stairs due to pain Functional Limitations- Work/School 1.5 hr stand/walk before requires seated rest break due to pain PT-OP-C Subjective Start: 11/04/23 17:57 Freq: Status: Active Protocol: Document 01/22/24 13:52 NM (Rec: 01/22/24 14:17 NM [id number]) OP-PT Subjective Patient Comments Patient Comments Pt reports that her dog ran into her again recently 2 days ago. She reports that her pain is worse again after that . She states that she feels stronger. Vira has been going to a personal shopper, but not doing squats. She states stairs hurt again. She has no pain during or after exercises . She is walking and doing peloton. She is wanting to discharge today to independent exercise with referral back to Dr. Colon for possible MRI pending pain management after last incident with dog earlier this week PT-OP-D Balance Start: 11/04/23 17:57 Freq: Status: Active Protocol: Document 11/05/23 09:02 NM (Rec: 11/05/23 09:48 NM [id number]) Balance Tests Romberg Romberg 30 seconds Single Limb Standing Single Limb- Right 15 seconds, increased sway/ instability Single Limb- Left 15 seconds Tandem Tandem Standing 10 seconds PT-OP-E Functional Tests Start: 11/04/23 17:57 Freq: Status: Active Protocol: Document 11/05/23 09:02 NM (Rec: 11/05/23 09:48 NM [id number]) Functional Tests Squat Test Score 10 Comments knee valgus, decreased depth; rotates L, painful PT-OP-F Manual Assessment Start: 11/04/23 17:57 Freq: Status: Active Protocol: Document 11/05/23 09:02 NM (Rec: 11/05/23 09:48 NM [id number]) Manual Assessments Soft Tissue Assessment Soft Tissue Mobility Assessment Tenderness and tightness in popliteal fossa. Slight hamstring tightness, but not formally measured Joint Mobility Assessment Joint Mobility Assessment No clicking or locking with instability tests. Pain with MCL test, but no increased mobility. R knee joint compression is painful, worse with rotation. Decreased patellar mobility globally. Pain with overpressure R knee extension PT-OP-G Mobility & Gait Start: 11/04/23 17:57 Freq: Status: Active Protocol: Document 11/05/23 09:02 NM (Rec: 11/05/23 09:48 NM [id number]) OP Gait Assessment Gait Gait Assistance Required: Independent Distance (Feet) 200 Assistive Devices Assistive Device None Gait Deviations General Gait Pattern Antalgic Factors Limiting Gait Function Factors Limiting Gait Function Decreased Activity Tolerance Comments Gait Comments No TKE R knee in stance, decreased stance time. PT-OP-H Neuro Start: 11/04/23 17:57 Freq: Status: Active Protocol: Document 11/05/23 09:02 NM (Rec: 11/05/23 09:48 NM [id number]) Sensation Evaluation Comments Summary Comments BLE intact to light touch sensation equally PT-OP-J Posture/Palpation/Skin Start: 11/04/23 17:57 Freq: Status: Active Protocol: Document 11/05/23 09:02 NM (Rec: 11/05/23 09:48 NM [id number]) Posture Evaluation Position Standing Head/C-Spine Posture Forward Head T-Spine Posture Increased Kyphosis Weight Distribution Decreased Wt.Bear on (R) Hip Posture (L) Externally Rotated,(R) Externally Rotated Knee Posture (L) Genu Valgus,(R) Genu Valgus Patellar Posture (L) Superior,(R) Superior Ankle/Foot Posture (L) Pronated,(R) Pronated Foot Arch (L) Medium Arch,(R) Medium Arch Comments Posture Comments Tendency for hyperextension L knee Palpation Assessment Location R knee Palpation Location medial joint line, anterior knee, patella, MCL, pes anserine Palpation Findings Soft Tissue Tightness, Tenderness Palpation Details Tenderness along medial joint line, MCL distally. No increased MCL thickness. No tenderness laterally on knee or at patellar tendon. No tenderness at pes anserine insertion PT-OP-K Range of Motion Start: 11/04/23 17:57 Freq: Status: Active Protocol: Document 01/22/24 13:52 NM (Rec: 01/22/24 14:17 NM [id number]) Knee Goniometric Range of Motion Knee Right Flexion Active (degrees) 125 Flexion Passive (degrees) 130 Extension Active (degrees) 2 Extension Passive (degrees) 0 Comments Evaluation: Pain with overpressure hyperextension 11/30/23: 130 deg flex, 0 deg ext w.o pain in hyperextension 12/23/23: 135 deg knee flexion, 0 deg ext 01/22/24: 125 deg flext, 0 deg ext PT-OP-L Special Tests Start: 11/04/23 17:57 Freq: Status: Active Protocol: Document 11/05/23 09:02 NM (Rec: 11/05/23 09:48 NM [id number]) Special Tests Knee Special Tests Valgus Test Results - Comments 0, 30 deg. Painful but no increased mobility compared to LLE Varus Test Results - Comments 0, 30 deg Patellar Grind Test Test Results + Posterior Sag Test Results - Posterior Draw Test Results - Anterior Draw Test Results - Parul Test Test Results + Comments Painful on medial joint line, no clicking/popping/locking Bhumi's Test Results - Thessaly Test Results + Comments 5 deg and 20 deg; reproduces familiar pain Apley's Compression Test Results + Comments Catching; reproduces familiar pain PT-OP-M Strength Start: 11/04/23 17:57 Freq: Status: Active Protocol: Document 01/22/24 13:52 NM (Rec: 01/22/24 14:17 NM [id number]) Hip Strength Hip Manual Muscle Testing Right Flexion (L2) 4+ Good+ Extension (S1) 4+ Good+ Abduction 4+ Good+ Adduction 4+ Good+ External Rotation 3+ Fair+ Internal Rotation 4+ Good+ Comments IE: 4/5 MMT for flex/ADD/ER/IR , 4-/5 for ext/abd 01/22/24: 4+/5 for all, Resisted ER painful at medial knee at 3+/5 Knee Strength Knee Manual Muscle Testing Right Flexion (S2) 4+ Good+ Extension (L3) 4+ Good+ Comments IE: 4-/5 for both, No pain with resisted motions 11/30/23: 4/5, no pain 12/23/23: 4+/5 ext, 4/5 flexion , no pain 01/22/24: 4+/5, no pain PT-OP-Q Treatments Start: 11/04/23 17:57 Freq: Status: Active Protocol: Document 01/22/24 13:52 NM (Rec: 01/22/24 14:18 NM [id number]) Therapeutic Exercises Sitting Exercises HS curl Sitting Exercise Name HS curl Side right Resistance cables #2>cables #3 Reps/Minutes 3x10 Comments pain free, fatiguing LAQ Sitting Exercise Name LAQ Side right Resistance cables #2 plates Reps/Minutes 3x10 Comments pain free in R knee, fatiguing Standing Exercises Deadlift Side bilateral Resistance 10# db ea hand Reps/Minutes 2x15 Comments good form, pain free squat Standing Exercise Name heel elevated squat Side bilateral Resistance AROM Reps/Minutes 1x10 Manual Therapy Treatment Soft Tissue Mobilization right knee Body Location medial, lateral, peripatellar area, distal quad and HS Mobilization Type Cross-Friction,Rolling Intensity/Depth Moderate Body Position Hooklying Comments For swelling management and pain reduction, performed distal > proximal. Pt has tenderness along medial knee, medial peripatellar region. Reports small pain reduction with soft tissue mobilization Joint Mobilizations R knee Joint patellar Direction lateral>medial, medial tilts, superior/inferior Grade II Body Position Supine Reps/Duration 2x10 ea Comments Decreased patellar mobility into medial, superior, medial tilt Other Other Manual Treatments Ligament testing of R knee: no increased mobility of R knee compared to L knee with anterior drawer, bhumi's, posterior drawer, varus or valgus, or increased clicking or catching with Parul. Pt does report slight knee pain with anterior drawer and varus testing Self-Care/Home Management Treatment Education Patient Education Home Exercise Program Other Education HEP: Educated to continue with previous HEP at able, participate with personal shopper as long as pain free and no knee instability. Educated on continued ice, elevation and swelling management as needed for pain reduction. Educated on following up with PCP for referral to specialist if symptoms return, change, or worsen PT-OP-R Modalities Start: 11/04/23 17:57 Freq: Status: Active Protocol: Document 01/05/24 15:12 SW (Rec: 01/05/24 16:12 SW [id number]) Hot Pack/Cold Pack Treatment Cold Pack Patient Position Hooklying Patient Tolerance Good Comments Bolster under knees, x 7 min, collier within reach PT-OP-T Assessment and Plan Start: 11/04/23 17:57 Freq: Status: Active Protocol: Document 01/22/24 13:52 NM (Rec: 01/22/24 14:17 NM [id number]) Physical Therapy Assessment Goals Five Impairment HEP Impairment no daily HEP/exercise program Short Term Goal (STG) Pt will report compliance with HEP 2-3x/wk in order to maximize gains made during PT sessions and demonstrate improved activity tolerance. STG Duration 3 weeks MET [employer] Goal (LTG) Pt will report compliance with HEP 2-3x/wk and/or establish walking program 2-3x/wk for maintenance after PT and demonstrate improved activity tolerance. 12/23/23: 4x/wk LTG Duration 6 weeks MET Four Impairment sleep Impairment pain with position during sleep Group Home Goal (LTG) Pt will report no R knee pain when changing sleep positions in order to demonstrate improved pain management and sleeping posture 11/30/23: Pt reports that when sleeping with pillow, she has no knee pain LTG Duration 6 weeks MET Three Impairment function Impairment pain with stairs Short Term Goal (STG) Pt will be able to perform at least 10 eccentric step downs with R knee pain <4/10 and without compensation in order to demonstrate improved knee stability and control during stairs 11/30/23: 10 eccentric step downs with 4/10 pain STG Duration 3 weeks PROGRESSING [employer] Goal (LTG) Pt will be able to perform at least 12 stairs with or without a hand rail with R knee pain <4/10 and without compensation in order to demonstrate improved knee stability and control during stairs. 12/23/23: no pain with 12 stairs or full stairs 14 with descent LTG Duration 6 weeks MET Two Impairment function Impairment 10 bilateral squats with pain, compensation Short Term Goal (STG) Pt will be able to perform at least 10 bilateral squats above 90 deg without compensation and pain <4/10 in order demonstrate improved hip and knee strength for ADLs , stairs 11/30/23: 3/10 at end of set to chair, 2x10, equal/bilateral, no compensation STG Duration 3 weeks MET [employer] Goal (LTG) Pt will be able to perform at least 15 bilateral squats above 90 deg without compensation and pain <4/10 in order demonstrate improved hip and knee strength for ADLs , stairs 12/23/23: 15 squats above 90 deg LTG Duration 6 weeks MET One Impairment strength Impairment R knee flex/ext strength 4-/5 MMT Short Term Goal (STG) Pt will improve R knee flex/ ext MMT to at least 4/5 in order to demonstrate increased knee strength for ADLs, gait 11/30/23: 4/5 for both, no pain STG Duration 3 weeks MET [employer] Goal (LTG) Pt will improve R knee flex/ ext MMT to at least 4+/5 in order to demonstrate increased knee strength for ADLs, gait 12/23/23: 4/5 for knee flexion, 4+/5 for knee ext 01/22/24: 4+/5 for knee flex and ext, pain free LTG Duration 6 weeks MET Progress Towards Goals Progress Towards Goals Goals Met Progress Comments Pt has met PT goals. Current LEFS 69/80 (decrease from last LEFS 75/80 on 12/22) Assessment Summary Assessment Pt has good tolerance for sagittal plane motion but frontal motion causes discomfort along medial knee. Trialed heel elevated squats with knee alignment at/behind ankle. Pt has slight medial knee discomfort at end of set (none during), so discontinued this session. Progressed to cable LAQ and HSC. Pt performed without pain and with good form, RLE only. Continued with deadlift for eccentric hamstring lengthening and glute strengthening, good hip hinge form. Physical Therapy Plan Frequency and Duration Frequency of Treatment 1x/Week Duration of treatment (weeks) 8 Plan of Care Start Date 12/23/23 Plan of Care End Date 02/26/24 Therapeutic Interventions Therapeutic Interventions Aquatic Therapy,Balance Training,Coordination Training ,Gait Training,Home Exercise Program,Joint Mobilizations, Manual Therapy,Neuromuscular Re-education,Orthotic/ Prosthetic Management,Patient/ Caregiver Education,Self-Care/ Home Management,Sensory Integration,Soft Tissue Mobilization,Taping, Therapeutic Activities, Therapeutic Exercises Modalities Biofeedback,Cold Pack/Ice Massage,Electric Stimulation, Hot Packs,Ultrasound, Vasopneumatic Devices Other Referrals/Consults Referrals/Consults Recommended Recommend MRI for assessment if pt pain and instability persists Discharge Physical Therapy Discharge Reasons Patient Request Discharge Comments Pt requesting referral back to doctor for further assessment of R knee Next Visit Focus/Plan Next Visit Plan Discharge from PT
== END 2024-01-26 10:54 | disposition home or self-care (01) ==
LOC: PHYS 13:45
PROVIDERS: Family Provider Family Medicine; PCP Family Medicine; Referring Provider Family Medicine; Visit Provider Family Medicine
DX: M25.561 Pain in right knee (principal); G89.29 Other chronic pain; R53.1 Weakness; R27.8 Other lack of coordination
CPT/HCPCS: 97110; 97140; 97161

== ENCOUNTER → 2024-11-17 16:09 | Outpatient (CLI) | payer OTHER, SELFPAY ==
--- NOTE | 2024-11-17 16:10 | DI.MG.S_ITS ---
MM screening mammo BI: 11/17/2024. BI-RADS: 2 CLINICAL: 54-year old female for bilateral screening mammogram. Tyrer-Cuzick lifetime risk of 16.2%. No personal or first-degree family history of breast cancer. Current reported family history of breast cancer: maternal grandmother. The patient had a prior left breast biopsy. PRIOR EXAMS 11/09/2023, 04/10/2022, 11/30/2020. MAMMOGRAPHY TECHNIQUE: 2D and 3D (tomosynthesis) digital mammographic views obtained, with additional images as needed for full coverage. Current study was also evaluated with a Computer Aided Detection (CAD) system. DENSITY B. There are scattered areas of fibroglandular density. MAMMOGRAPHY FINDINGS Right: Biopsy marker present on the right. There are no suspicious masses, calcifications, or other findings in the breast. Left: No suspicious mass, asymmetry, microcalcification, or other abnormality seen. IMPRESSION: Right * No evidence of malignancy with benign findings. Left * No evidence of malignancy. RECOMMENDATIONS Bilateral * Annual screening mammography. OVERALL ASSESSMENT CATEGORY BI-RADS-2: Benign. The [employer] recommends annual screening mammography beginning at age 40 for women with average risk of breast cancer. ELECTRONICALLY SIGNED: Arvin Serrano M.D. on 11/18/2024 at 10:08:29 AM PT Interpreting Station ID: [id number]
== END ==
LOC: MAMMO 16:09
PROVIDERS: Family Provider Family Medicine; PCP Family Medicine; Referring Provider Family Medicine; Visit Provider Family Medicine
DX: Z12.31 Encounter for screening mammogram for malignant neoplasm of breast (principal); Z80.3 Family history of malignant neoplasm of breast
CPT/HCPCS: 77063; 77067

== ENCOUNTER → 2024-12-19 16:45 | Outpatient (CLI) | payer OTHER, SELFPAY ==
--- NOTE | 2024-12-19 16:46 | DI.MRI.S_ITS ---
PROCEDURE: MR KNEE RT WO CON INDICATIONS: CHRONIC RT KNEE PAIN TECHNIQUE: Noncontrast sagittal PD fast spin echo and T2 fast spin echo with fat saturation, sagittal 3-D FLASH with fat saturation; coronal T1 spin echo and PD fast spin echo with fat saturation, and axial PD fast spin echo with fat saturation through the knee. COMPARISON: None. FINDINGS: Image quality: Excellent. Menisci: In the medial meniscus, there is a mildly complex tear involving the undersurface of the meniscus body. No extrusion of the medial meniscus body. The lateral meniscus is unremarkable. Cruciate ligaments: The anterior and posterior cruciate ligaments appear intact. Medial structures: The medial collateral ligament appears intact. The posterior oblique ligament, semimembranosus tendon insertions, oblique popliteal ligament, and meniscocapsular junction appear intact. Visualized portions of the pes anserinus tendons appear normal. No abnormal bursal fluid. Lateral structures: The lateral collateral ligament, long and short heads of the biceps femoris tendon appear intact. The popliteus tendon appears normal; the popliteofibular ligament appears intact. The posterosuperior and anteroinferior popliteomeniscal fascicles appear intact. The arcuate and fabellofibular ligaments appear intact, on either side of the lateral inferior geniculate artery. Iliotibial band appears normal. Anterior structures: The quadriceps tendon is unremarkable. Mild tendinosis of the proximal patellar tendon. The medial and lateral patellofemoral ligaments are intact. Bones and cartilage: Full-thickness chondral fissuring in the medial patellar facet. Mild chondral irregularity of the median ridge and the medial patellar facet. Cartilage of the trochlea is unremarkable. The cartilage of the medial and the lateral compartments are well maintained. No acute fracture. Joint space: Trace knee effusion. Trace popliteal cyst. Popliteal vasculature is unremarkable. No intra-articular body. IMPRESSION: 1. Mildly complex tear of the medial meniscus. 2. Mild tendinosis of the proximal patellar tendon. 3. Mild chondrosis of the patellofemoral compartment. Dictated by: Iqra Andujar M.D. on 12/20/2024 at 9:14 Approved by: Iqra Andujar M.D. on 12/20/2024 at 9:24
== END ==
LOC: MRI 16:45
PROVIDERS: Family Provider Family Medicine; PCP Family Medicine; Referring Provider Family Medicine; Visit Provider Family Medicine
DX: S83.231A Complex tear of medial meniscus, current injury, right knee, initial encounter (principal); M22.41 Chondromalacia patellae, right knee; M25.561 Pain in right knee; G89.29 Other chronic pain
CPT/HCPCS: 73721

== ENCOUNTER → 2024-12-23 08:02 | Outpatient (CLI) | payer OTHER, SELFPAY ==
--- NOTE | 2024-12-23 08:06 | DI.RAD.S_ITS ---
PROCEDURE: XR KNEE LT 3V INDICATIONS: Other chronic pain TECHNIQUE: 3 views of the knee were acquired. COMPARISON: None. FINDINGS: Bones: There are no osseous abnormalities. Joints: The tibialfemoral and patellofemoral joints are normal in width and alignment without arthritic change. . There are no effusions. Soft tissues: Normal IMPRESSION: Normal knee. Dictated by: Kalpesh Wan M.D. on 12/23/2024 at 12:51 Approved by: Kalpesh Wan M.D. on 12/23/2024 at 12:51
--- NOTE | 2024-12-23 08:06 | DI.RAD.S_ITS ---
PROCEDURE: XR SHOULDER LT MIN 2V INDICATIONS: Other chronic pain TECHNIQUE: Three views of the left shoulder were acquired. COMPARISON: None. FINDINGS: Bones: There are no osseous abnormalities. Acromioclavicular and glenohumeral joints: Normal in width and alignment without arthritic change Soft tissues: No soft tissue swelling, calcification or mass. IMPRESSION: Normal shoulder Dictated by: Kalpesh Wan M.D. on 12/23/2024 at 12:51 Approved by: Kalpesh Wan M.D. on 12/23/2024 at 12:51
--- NOTE | 2024-12-23 08:06 | DI.RAD.S_ITS ---
PROCEDURE: XR KNEE RT 3V INDICATIONS: Other chronic pain TECHNIQUE: 3 views of the knee were acquired. COMPARISON: None. FINDINGS: Bones: Mild cortical irregularity of the anterior patella is almost certainly chronic. Joints: The tibialfemoral and patellofemoral joints are normal in width and alignment without arthritic change. . There are no effusions. Soft tissues: Minor calcification quadriceps tendon insertion on the patella IMPRESSION: Minor chronic findings Dictated by: Kalpesh Wan M.D. on 12/23/2024 at 12:52 Approved by: Kalpesh Wan M.D. on 12/23/2024 at 12:52
== END ==
PROVIDERS: Family Provider Family Medicine; PCP Family Medicine; Referring Provider Family Medicine; Visit Provider Family Medicine
DX: M25.512 Pain in left shoulder (principal); G89.29 Other chronic pain; M25.561 Pain in right knee; M65.811 Other synovitis and tenosynovitis, right shoulder
CPT/HCPCS: 73030; 73562

== ENCOUNTER → 2025-09-05 17:12 | Outpatient (CLI) | payer OTHER, SELFPAY ==
--- NOTE | 2025-09-05 17:13 | DI.MRI.S_ITS ---
PROCEDURE: MR SHOULDER LT WO CON INDICATIONS: LT SHOULDER PX TECHNIQUE: Noncontrast oblique coronal T2 fast spin echo with fat saturation, oblique sagittal T1 spin echo and T2 fast spin echo with fat saturation, axial T1 spin echo and T2 fast spin echo with fat saturation through the shoulder. COMPARISON: None. FINDINGS: Quality: Adequate. Tendons: Rotator cuff tendons: Supraspinatus insertional tendinopathy. Teres minor infraspinatus tendons are intact. Subscapularis tendon is intact. Long head of biceps tendon: Intact. No dislocation. Muscles: No disproportionate fatty degeneration of the rotator cuff musculature. Acromioclavicular joint: Unremarkable. Glenohumeral joint: Labrum: Unremarkable. Cartilage: No focal defect. Fluid: Small effusion. Alignment: No dislocation. Bursa: Subacromial/subdeltoid bursa: Distended. Subcoracoid bursa: Nondistended. Bones: No fracture. IMPRESSION: Subacromial/subdeltoid bursitis. Supraspinatus tendinopathy. Dictated by: Ruddy Montalvo M.D. on 09/06/2025 at 14:58 Approved by: Ruddy Montalvo M.D. on 09/06/2025 at 15:04
== END ==
PROVIDERS: Family Provider Family Medicine; PCP Family Medicine; Referring Provider Family Medicine; Visit Provider Family Medicine
DX: M75.52 Bursitis of left shoulder (principal); M25.512 Pain in left shoulder
CPT/HCPCS: 73221